=== PATIENT | male | born 1935 | race Caucasian/White ===

== ENCOUNTER 2018-10-20 09:23 | Inpatient (IN) ==
[2018-10-20] MEDS ORDERED: ALBUTEROL/IPRATROPIUM 3 ML NEB RESP TX STA ×2 (10:05→12:34)
[2018-10-20 10:26] LABS: Basophils % 0.2 % (0.0-0.8); Hematocrit 36.6 VOL% (42.0-52.0); Hemoglobin 11.8 GM/DL (14.0-18.0); Immature Granulocytes % 0.7 %; Immature Granulocytes Absolute 0.09 #; Lymphocytes # 0.9 10*3/uL (1.4-4.0); Lymphocytes % 6.2 % (21.2-54.2); Mean Corpuscular HGB Conc 32.2 GM/DL (32-36); Mean Corpuscular Volume 92.7 FL (87-102); Mean Platelet Volume 11.4 FL (9.6-12.0); Monocytes % 4.9 % (1.7-12.7); Platelet Count 237 T/CUMM (130-400); Red Blood Count 3.95 MC/CUMM (3.8-5.5); Red Cell Distribution Width 13.4 % (9.3-17.3); White Blood Count 13.8 T/CUMM (4-12)
[2018-10-20] MEDS ORDERED: LEVOFLOXACIN INJ 750 MG in PREMIX 1 EACH IV STA (10:26)
[2018-10-20] MEDS ORDERED: methylPREDNISolone SOD SUC 125 MG/2 ML VIAL IV STA (10:26)
[2018-10-20] MEDS ORDERED: AZITHROMYCIN INJ 500 MG in SODIUM CHLORIDE 0.9% 250 ML IV STA (10:26)
[2018-10-20 10:48] LABS: Alanine Aminotransferase 25 U/L (16-61); Albumin 3.5 G/DL (3.4-5.0); Alkaline Phosphatase 99 U/L (45-117); Aspartate Amino Transferase 19 U/L (0-37); Blood Urea Nitrogen 36 MG/DL (7-18); Calcium 8.7 MG/DL (8.5-10.1); Glucose 172 MG/DL (74-106)
[2018-10-20] MEDS ORDERED: SODIUM CHLORIDE 0.9% 1,000 ML IV STA (11:23)
[2018-10-20 11:42] LABS: ABG HCO3 20.7 MMOL/L (20-26); ABG PCO2 29.3 MM HG (35-48); ABG PH 7.466 (7.35-7.45); ABG PO2 61.1 MM HG (80-95); ABG TCO2 21.6 MMOL/L (23-27)
[2018-10-20] MEDS ORDERED: ACETAMINOPHEN 325 MG TABLET PO PRN (12:42)
[2018-10-20] MEDS ORDERED: ALBUTEROL 2.5 MG/3 ML NEB RESP TX PRN (12:42)
[2018-10-20] MEDS ORDERED: guaiFENesin/DM ER 600-30 MG TABLET PO PRN (12:42)
[2018-10-20] MEDS ORDERED: ONDANSETRON 4 MG/2 ML VIAL IV PRN (12:42)
[2018-10-20] MEDS: ALBUTEROL/IPRATROPIUM 3 ML NEB RESP TX SCH ×2 (12:45→18:57)
[2018-10-20] MEDS ORDERED: PIPERACILLIN/TAZOBACTAM 2.25 MG in SODIUM CHLORIDE 0.9% 100 ML IV SCH (13:00)
[2018-10-20] MEDS ORDERED: PIPERACILLIN/TAZOBACTAM 3.375 MG in SODIUM CHLORIDE 0.9% 100 ML IV SCH (14:00)
[2018-10-20] MEDS ORDERED: FUROSEMIDE 100 MG/10 ML VIAL IV ONE ×2 (14:46→17:00)
[2018-10-20 15:29] LABS: ABG Base Excess -7.1 MMOL/L (-2.5-2.5); ABG HCO3 18.7 MMOL/L (20-26); ABG Oxygen Saturation 98.2 % (95-100); ABG PCO2 41.7 MM HG (35-48); ABG PH 7.277 (7.35-7.45); ABG TCO2 17.5 MMOL/L (23-27); Allen Test Positive; Pt O2 Delivery Device Ventilator
[2018-10-20] MEDS ORDERED: ETOMIDATE 20 MG/10 ML VIAL IV ONE (15:34)
[2018-10-20] MEDS ORDERED: ROCURONIUM 100 MG/10 ML VIAL IV ONE (15:35)
[2018-10-20] MEDS ORDERED: VANCOMYCIN INJ 1,000 MG in SODIUM CHLORIDE 0.9% 250 ML IV ONE (15:39)
[2018-10-20] MEDS: ENOXAPARIN 40 MG/0.4 ML SYRINGE SUBCUT SCH (16:31)
[2018-10-20] MEDS: PANTOPRAZOLE 40 MG VIAL IV SCH (16:31)
[2018-10-20] MEDS: PIPERACILLIN/TAZOBACTAM 3,375 MG in SODIUM CHLORIDE 0.9% 100 ML IV SCH (16:43)
[2018-10-20] MEDS: methylPREDNISolone SOD SUC 125 MG/2 ML VIAL IV SCH (18:11)
[2018-10-20] MEDS: PROPOFOL 1,000 MG/100 ML BOTTLE IV PRN (18:59)
[2018-10-20] MEDS: LABETALOL 200 MG TABLET PO SCH (20:29)
[2018-10-21] MEDS: ALBUTEROL/IPRATROPIUM 3 ML NEB RESP TX SCH ×4 (00:21→19:31)
[2018-10-21] MEDS: PROPOFOL 1,000 MG/100 ML BOTTLE IV PRN ×5 (00:55→23:24)
[2018-10-21] MEDS: PIPERACILLIN/TAZOBACTAM 3,375 MG in SODIUM CHLORIDE 0.9% 100 ML IV SCH ×3 (01:14→16:48)
[2018-10-21 01:47] LABS: Basophils % 0.1 % (0.0-0.8); Hematocrit 35.7 VOL% (42.0-52.0); Hemoglobin 11.5 GM/DL (14.0-18.0); Immature Granulocytes % 0.6 %; Immature Granulocytes Absolute 0.06 #; Lymphocytes # 0.6 10*3/uL (1.4-4.0); Lymphocytes % 5.8 % (21.2-54.2); Mean Corpuscular HGB Conc 32.2 GM/DL (32-36); Mean Corpuscular Volume 92.5 FL (87-102); Mean Platelet Volume 11.3 FL (9.6-12.0); Monocytes % 2.8 % (1.7-12.7); Neutrophils % 90.7 % (38.7-73.9); Platelet Count 231 T/CUMM (130-400); Red Blood Count 3.86 MC/CUMM (3.8-5.5); Red Cell Distribution Width 13.3 % (9.3-17.3); White Blood Count 9.9 T/CUMM (4-12)
[2018-10-21 01:58] LABS: Calcium 7.9 MG/DL (8.5-10.1); Osmolality,Calculated 293.5 MOS/KG (273-304)
[2018-10-21] MEDS: methylPREDNISolone SOD SUC 125 MG/2 ML VIAL IV SCH ×3 (02:19→18:13)
[2018-10-21 04:27] LABS: ABG Base Excess -0.3 MMOL/L (-2.5-2.5); ABG HCO3 22.7 MMOL/L (20-26); ABG Oxygen Saturation 95.8 % (95-100); ABG PCO2 32.2 MM HG (35-48); ABG PH 7.466 (7.35-7.45); ABG PO2 80.1 MM HG (80-95); ABG TCO2 23.7 MMOL/L (23-27); Allen Test Positive; Pt O2 Delivery Device Ventilator
[2018-10-21 04:43] LABS: Lymphocytes 6 % (20-55); Segmented Neutrophils 91 % (50-85); Total Cells Counted 100
[2018-10-21 04:44] LABS: Anisocytosis Slight; Platelet Estimate Adequate
[2018-10-21] MEDS ORDERED: ASPIRIN EC 81 MG TABLET PO SCH (09:00)
[2018-10-21] MEDS: amLODIPine 10 MG TABLET PO SCH (09:07)
[2018-10-21] MEDS: SIMVASTATIN 20 MG TABLET PO SCH (09:07)
[2018-10-21] MEDS: LABETALOL 200 MG TABLET PO SCH ×2 (09:07→20:15)
[2018-10-21] MEDS: ASPIRIN CHEW 81 MG TABLET PO SCH (09:18)
[2018-10-21] MEDS ORDERED: FUROSEMIDE 40 MG/4 ML VIAL IV ONE (10:53)
[2018-10-21] MEDS: POTASSIUM CHLORIDE 20 MEQ/15 ML UDCUP PO SCH ×2 (11:06→20:15)
[2018-10-21] MEDS: PANTOPRAZOLE 40 MG VIAL IV SCH (12:50)
[2018-10-21] MEDS: ENOXAPARIN 40 MG/0.4 ML SYRINGE SUBCUT SCH (13:00)
[2018-10-21] MEDS ORDERED: GLUCAGON 1 MG VIAL IM PRN (16:11)
[2018-10-21] MEDS ORDERED: DEXTROSE 50% 25 GM/50 ML SYRINGE IV PRN (16:11)
[2018-10-21] MEDS: FUROSEMIDE 40 MG/4 ML VIAL IV SCH (16:48)
[2018-10-21] MEDS: INSULIN REGULAR 100 UNIT/ML SUBCUT SCH ×2 (18:12→23:30)
[2018-10-22] MEDS: PIPERACILLIN/TAZOBACTAM 3,375 MG in SODIUM CHLORIDE 0.9% 100 ML IV SCH ×3 (01:16→17:25)
[2018-10-22] MEDS: ALBUTEROL/IPRATROPIUM 3 ML NEB RESP TX SCH ×4 (01:41→20:34)
[2018-10-22] MEDS: methylPREDNISolone SOD SUC 125 MG/2 ML VIAL IV SCH ×4 (03:27→23:25)
[2018-10-22 04:30] LABS: ABG Base Excess 0.9 MMOL/L (-2.5-2.5); ABG HCO3 22.4 MMOL/L (20-26); ABG Oxygen Saturation 98.6 % (95-100); ABG PCO2 27.1 MM HG (35-48); ABG PH 7.536 (7.35-7.45); ABG PO2 127.6 MM HG (80-95); ABG TCO2 23.3 MMOL/L (23-27); Allen Test Positive; Pt O2 Delivery Device Ventilator
[2018-10-22 05:09] LABS: Calcium 8.1 MG/DL (8.5-10.1); Osmolality,Calculated 301.4 MOS/KG (273-304)
[2018-10-22] MEDS: INSULIN REGULAR 100 UNIT/ML SUBCUT SCH ×4 (05:39→23:25)
[2018-10-22] MEDS: PROPOFOL 1,000 MG/100 ML BOTTLE IV PRN ×4 (05:40→23:50)
[2018-10-22 06:12] LABS: Basophils % 0.1 % (0.0-0.8); Hematocrit 34.8 VOL% (42.0-52.0); Hemoglobin 11.6 GM/DL (14.0-18.0); Immature Granulocytes % 0.7 %; Immature Granulocytes Absolute 0.07 #; Lymphocytes # 0.5 10*3/uL (1.4-4.0); Lymphocytes % 5.2 % (21.2-54.2); Mean Corpuscular HGB Conc 33.3 GM/DL (32-36); Mean Corpuscular Volume 90.4 FL (87-102); Mean Platelet Volume 11.7 FL (9.6-12.0); Platelet Count 233 T/CUMM (130-400); Red Blood Count 3.85 MC/CUMM (3.8-5.5); Red Cell Distribution Width 13.4 % (9.3-17.3); White Blood Count 9.7 T/CUMM (4-12)
[2018-10-22 07:56] LABS: Anisocytosis Slight; Band Neutrophils 7 % (0-10); Lymphocytes 1 % (20-55); Platelet Estimate Normal; Segmented Neutrophils 91 % (50-85); Total Cells Counted 100
[2018-10-22] MEDS: FUROSEMIDE 40 MG/4 ML VIAL IV SCH ×2 (08:57→09:13)
[2018-10-22] MEDS: ENOXAPARIN 30 MG/0.3 ML SYRINGE SUBCUT SCH (09:12)
[2018-10-22] MEDS: amLODIPine 10 MG TABLET PO SCH (09:15)
[2018-10-22] MEDS: ASPIRIN CHEW 81 MG TABLET PO SCH (09:15)
[2018-10-22] MEDS: SIMVASTATIN 20 MG TABLET PO SCH (09:15)
[2018-10-22] MEDS: POTASSIUM CHLORIDE 20 MEQ/15 ML UDCUP PO SCH ×2 (09:25→20:15)
[2018-10-22] MEDS: LABETALOL 200 MG TABLET PO SCH (09:25)
[2018-10-22] MEDS ORDERED: DOXAZOSIN 2 MG TABLET PER TUBE SCH (10:30)
[2018-10-22] MEDS: DOXAZOSIN 1 MG TABLET PER TUBE SCH (11:31)
[2018-10-22] MEDS: LEVOFLOXACIN INJ 750 MG in PREMIX 1 EACH IV SCH (11:35)
[2018-10-22] MEDS: PANTOPRAZOLE 40 MG VIAL IV SCH (12:40)
[2018-10-23] MEDS: ALBUTEROL/IPRATROPIUM 3 ML NEB RESP TX SCH ×4 (00:54→20:53)
[2018-10-23] MEDS: PROPOFOL 1,000 MG/100 ML BOTTLE IV PRN ×3 (04:06→14:31)
[2018-10-23] MEDS: PIPERACILLIN/TAZOBACTAM 3,375 MG in SODIUM CHLORIDE 0.9% 100 ML IV SCH ×3 (04:19→16:53)
[2018-10-23 04:48] LABS: Basophils % 0.1 % (0.0-0.8); Hematocrit 36.1 VOL% (42.0-52.0); Hemoglobin 11.9 GM/DL (14.0-18.0); Immature Granulocytes % 0.8 %; Immature Granulocytes Absolute 0.06 #; Lymphocytes # 0.4 10*3/uL (1.4-4.0); Lymphocytes % 5.8 % (21.2-54.2); Mean Corpuscular Volume 91.6 FL (87-102); Mean Platelet Volume 11.9 FL (9.6-12.0); Monocytes % 3.6 % (1.7-12.7); Neutrophils % 89.7 % (38.7-73.9); Platelet Count 240 T/CUMM (130-400); Red Blood Count 3.94 MC/CUMM (3.8-5.5); Red Cell Distribution Width 13.4 % (9.3-17.3); White Blood Count 7.6 T/CUMM (4-12)
[2018-10-23 05:17] LABS: Calcium 8.3 MG/DL (8.5-10.1); Osmolality,Calculated 318.6 MOS/KG (273-304)
[2018-10-23 06:24] LABS: ABG Base Excess 2.5 MMOL/L (-2.5-2.5); ABG HCO3 26.6 MMOL/L (20-26); ABG Oxygen Saturation 99.1 % (95-100); ABG PCO2 40.5 MM HG (35-48); ABG PH 7.431 (7.35-7.45); ABG TCO2 23.9 MMOL/L (23-27)
[2018-10-23] MEDS: INSULIN REGULAR 100 UNIT/ML SUBCUT SCH ×3 (06:46→18:55)
[2018-10-23] MEDS: SIMVASTATIN 20 MG TABLET PO SCH (08:54)
[2018-10-23] MEDS: DOXAZOSIN 1 MG TABLET PER TUBE SCH (08:54)
[2018-10-23] MEDS: ASPIRIN CHEW 81 MG TABLET PO SCH (08:54)
[2018-10-23] MEDS: amLODIPine 10 MG TABLET PO SCH (08:54)
[2018-10-23] MEDS: POTASSIUM CHLORIDE 20 MEQ/15 ML UDCUP PO SCH ×2 (08:55→20:20)
[2018-10-23] MEDS: methylPREDNISolone SOD SUC 125 MG/2 ML VIAL IV SCH ×2 (08:56→16:47)
[2018-10-23] MEDS: ENOXAPARIN 30 MG/0.3 ML SYRINGE SUBCUT SCH (08:59)
[2018-10-23] MEDS: PANTOPRAZOLE 40 MG VIAL IV SCH (13:00)
[2018-10-24] MEDS: PROPOFOL 1,000 MG/100 ML BOTTLE IV PRN ×3 (00:15→08:48)
[2018-10-24] MEDS: ALBUTEROL/IPRATROPIUM 3 ML NEB RESP TX SCH ×4 (00:47→19:53)
[2018-10-24] MEDS: methylPREDNISolone SOD SUC 125 MG/2 ML VIAL IV SCH ×3 (01:01→16:59)
[2018-10-24] MEDS: INSULIN REGULAR 100 UNIT/ML SUBCUT SCH ×4 (01:02→18:32)
[2018-10-24] MEDS: PIPERACILLIN/TAZOBACTAM 3,375 MG in SODIUM CHLORIDE 0.9% 100 ML IV SCH ×3 (01:05→16:59)
[2018-10-24 04:03] LABS: ABG HCO3 28.5 MMOL/L (20-26); ABG Oxygen Saturation 94.9 % (95-100); ABG PCO2 42.7 MM HG (35-48); ABG PH 7.443 (7.35-7.45); ABG PO2 77.4 MM HG (80-95); ABG TCO2 29.9 MMOL/L (23-27); Allen Test Positive; Pt O2 Delivery Device Ventilator
[2018-10-24 04:27] LABS: Basophils % 0.1 % (0.0-0.8); Hematocrit 39.2 VOL% (42.0-52.0); Hemoglobin 12.3 GM/DL (14.0-18.0); Immature Granulocytes % 0.6 %; Immature Granulocytes Absolute 0.05 #; Lymphocytes # 0.4 10*3/uL (1.4-4.0); Lymphocytes % 3.9 % (21.2-54.2); Mean Corpuscular HGB Conc 31.4 GM/DL (32-36); Mean Platelet Volume 11.4 FL (9.6-12.0); Monocytes % 4.6 % (1.7-12.7); Neutrophils % 90.8 % (38.7-73.9); Platelet Count 216 T/CUMM (130-400); Red Blood Count 4.17 MC/CUMM (3.8-5.5); Red Cell Distribution Width 13.4 % (9.3-17.3); White Blood Count 8.9 T/CUMM (4-12)
[2018-10-24 04:51] LABS: Calcium 8.5 MG/DL (8.5-10.1); Osmolality,Calculated 321.9 MOS/KG (273-304)
[2018-10-24 05:10] LABS: Anisocytosis 1+; Band Neutrophils 1 % (0-10); Lymphocytes 6 % (20-55); Platelet Estimate Normal; Segmented Neutrophils 89 % (50-85); Total Cells Counted 100
[2018-10-24] MEDS: POTASSIUM CHLORIDE 20 MEQ/15 ML UDCUP PO SCH (08:10)
[2018-10-24] MEDS: amLODIPine 10 MG TABLET PO SCH (08:10)
[2018-10-24] MEDS: ENOXAPARIN 30 MG/0.3 ML SYRINGE SUBCUT SCH (08:10)
[2018-10-24] MEDS: ASPIRIN CHEW 81 MG TABLET PO SCH (08:10)
[2018-10-24] MEDS: DOXAZOSIN 1 MG TABLET PER TUBE SCH (08:10)
[2018-10-24] MEDS: SIMVASTATIN 20 MG TABLET PO SCH (08:11)
[2018-10-24] MEDS: FUROSEMIDE 40 MG/4 ML VIAL IV SCH ×2 (09:13)
[2018-10-24 09:23] LABS: ABG Base Excess 3.5 MMOL/L (-2.5-2.5); ABG HCO3 27.3 MMOL/L (20-26); ABG Oxygen Saturation 89.6 % (95-100); ABG PO2 55.4 MM HG (80-95); ABG TCO2 23.3 MMOL/L (23-27)
[2018-10-24] MEDS: LEVOFLOXACIN INJ 750 MG in PREMIX 1 EACH IV SCH (11:40)
[2018-10-24] MEDS: PANTOPRAZOLE 40 MG VIAL IV SCH (14:07)
[2018-10-24] MEDS ORDERED: AMIODARONE INJ 150 MG in DEXTROSE 5% 100 ML IV ONE (20:36)
[2018-10-24] MEDS ORDERED: AMIODARONE 150 MG/3 ML VIAL ONE (20:37)
[2018-10-25] MEDS: INSULIN REGULAR 100 UNIT/ML SUBCUT SCH ×4 (00:04→18:17)
[2018-10-25] MEDS: methylPREDNISolone SOD SUC 125 MG/2 ML VIAL IV SCH ×3 (00:04→22:10)
[2018-10-25] MEDS: PIPERACILLIN/TAZOBACTAM 3,375 MG in SODIUM CHLORIDE 0.9% 100 ML IV SCH ×3 (00:13→18:17)
[2018-10-25 04:51] LABS: Basophils % 0.1 % (0.0-0.8); Hematocrit 39.5 VOL% (42.0-52.0); Hemoglobin 12.7 GM/DL (14.0-18.0); Immature Granulocytes % 0.8 %; Immature Granulocytes Absolute 0.09 #; Lymphocytes # 0.7 10*3/uL (1.4-4.0); Mean Corpuscular HGB Conc 32.2 GM/DL (32-36); Mean Corpuscular Volume 92.3 FL (87-102); Mean Platelet Volume 11.5 FL (9.6-12.0); Monocytes % 6.5 % (1.7-12.7); Neutrophils % 86.6 % (38.7-73.9); Platelet Count 232 T/CUMM (130-400); Red Blood Count 4.28 MC/CUMM (3.8-5.5); Red Cell Distribution Width 13.3 % (9.3-17.3); White Blood Count 10.8 T/CUMM (4-12)
[2018-10-25 05:06] LABS: Calcium 8.3 MG/DL (8.5-10.1); Osmolality,Calculated 304.7 MOS/KG (273-304)
[2018-10-25 06:14] LABS: ABG Base Excess 7.2 MMOL/L (-2.5-2.5); ABG HCO3 30.8 MMOL/L (20-26); ABG Oxygen Saturation 90.7 % (95-100); ABG PCO2 39.7 MM HG (35-48); ABG PH 7.499 (7.35-7.45); ABG PO2 63.7 MM HG (80-95); ABG TCO2 27.2 MMOL/L (23-27); Allen Test Positive; Pt O2 Delivery Device Venturi Mask
[2018-10-25] MEDS: ALBUTEROL/IPRATROPIUM 3 ML NEB RESP TX SCH ×4 (06:59→19:56)
[2018-10-25] MEDS: ENOXAPARIN 30 MG/0.3 ML SYRINGE SUBCUT SCH (08:14)
[2018-10-25] MEDS: DOXAZOSIN 1 MG TABLET PER TUBE SCH (08:15)
[2018-10-25] MEDS: amLODIPine 10 MG TABLET PO SCH (08:15)
[2018-10-25] MEDS: FUROSEMIDE 40 MG/4 ML VIAL IV SCH (08:15)
[2018-10-25] MEDS: SIMVASTATIN 20 MG TABLET PO SCH (08:15)
[2018-10-25] MEDS: ASPIRIN CHEW 81 MG TABLET PO SCH (08:15)
[2018-10-25] MEDS: POTASSIUM CHLORIDE RIDER 10 MEQ in PREMIX 1 EACH IV PRN ×3 (08:16→10:17)
[2018-10-25] MEDS: PANTOPRAZOLE 40 MG VIAL IV SCH (13:51)
[2018-10-25] MEDS ORDERED: METOPROLOL TARTRATE 5 MG/5 ML VIAL IV ONE (18:43)
[2018-10-25] MEDS ORDERED: AMIODARONE INJ 150 MG in DEXTROSE 5% 100 ML IV ONE (18:48)
[2018-10-25] MEDS: CEFUROXIME 250 MG TABLET PO SCH (22:09)
[2018-10-25] MEDS: AMIODARONE 200 MG TABLET PO SCH (22:10)
[2018-10-26] MEDS: INSULIN REGULAR 100 UNIT/ML SUBCUT SCH ×4 (00:13→17:30)
[2018-10-26] MEDS: ALBUTEROL/IPRATROPIUM 3 ML NEB RESP TX SCH ×5 (01:07→19:52)
[2018-10-26 05:19] LABS: Basophils % 0.2 % (0.0-0.8); Hematocrit 44.3 VOL% (42.0-52.0); Hemoglobin 14.6 GM/DL (14.0-18.0); Immature Granulocytes Absolute 0.12 #; Lymphocytes # 0.4 10*3/uL (1.4-4.0); Lymphocytes % 3.5 % (21.2-54.2); Mean Corpuscular Volume 90.2 FL (87-102); Mean Platelet Volume 11.3 FL (9.6-12.0); Monocytes % 1.7 % (1.7-12.7); Neutrophils % 93.6 % (38.7-73.9); Platelet Count 240 T/CUMM (130-400); Red Blood Count 4.91 MC/CUMM (3.8-5.5); Red Cell Distribution Width 12.9 % (9.3-17.3)
[2018-10-26 05:43] LABS: Calcium 8.2 MG/DL (8.5-10.1); Osmolality,Calculated 291.8 MOS/KG (273-304)
[2018-10-26 05:45] LABS: Lymphocytes 5 % (20-55); Platelet Estimate Normal; Segmented Neutrophils 95 % (50-85); Total Cells Counted 100
[2018-10-26 05:46] LABS: Polychromasia Slight
[2018-10-26] MEDS ORDERED: AMIODARONE INJ 150 MG in DEXTROSE 5% 100 ML IV ONE (08:04)
[2018-10-26] MEDS: methylPREDNISolone SOD SUC 125 MG/2 ML VIAL IV SCH (08:45)
[2018-10-26] MEDS ORDERED: methylPREDNISolone SOD SUC 40 MG/1 ML VIAL IV SCH (09:00)
[2018-10-26] MEDS: POTASSIUM CHLORIDE RIDER 10 MEQ in PREMIX 1 EACH IV PRN ×3 (09:10→11:20)
[2018-10-26] MEDS: CEFUROXIME 250 MG TABLET PO SCH ×2 (09:11→21:54)
[2018-10-26] MEDS: CARVEDILOL 12.5 MG TABLET PO SCH ×2 (09:11→21:55)
[2018-10-26] MEDS: amLODIPine 10 MG TABLET PO SCH (09:11)
[2018-10-26] MEDS: DOXAZOSIN 1 MG TABLET PER TUBE SCH (09:11)
[2018-10-26] MEDS: FUROSEMIDE 40 MG/4 ML VIAL IV SCH (09:11)
[2018-10-26] MEDS: ASPIRIN CHEW 81 MG TABLET PO SCH (09:11)
[2018-10-26] MEDS: LEVOFLOXACIN 250 MG TABLET PO SCH (09:11)
[2018-10-26] MEDS: ENOXAPARIN 30 MG/0.3 ML SYRINGE SUBCUT SCH (09:11)
[2018-10-26] MEDS: AMIODARONE 200 MG TABLET PO SCH ×2 (09:11→21:54)
[2018-10-26] MEDS: SIMVASTATIN 20 MG TABLET PO SCH (09:12)
[2018-10-27] MEDS: ALBUTEROL/IPRATROPIUM 3 ML NEB RESP TX SCH ×4 (00:05→20:18)
[2018-10-27] MEDS: INSULIN REGULAR 100 UNIT/ML SUBCUT SCH ×4 (00:37→18:48)
[2018-10-27 06:27] LABS: Basophils % 0.1 % (0.0-0.8); Eosinophils # 0.1 10*3/uL (0.0-0.87); Eosinophils % 0.4 % (0.00-10.9); Hematocrit 42.8 VOL% (42.0-52.0); Hemoglobin 14.5 GM/DL (14.0-18.0); Immature Granulocytes % 0.9 %; Immature Granulocytes Absolute 0.15 #; Lymphocytes # 1.4 10*3/uL (1.4-4.0); Lymphocytes % 8.6 % (21.2-54.2); Mean Corpuscular HGB Conc 33.9 GM/DL (32-36); Mean Corpuscular Volume 89.2 FL (87-102); Mean Platelet Volume 11.4 FL (9.6-12.0); Monocytes % 8.2 % (1.7-12.7); Neutrophils % 81.8 % (38.7-73.9); Platelet Count 271 T/CUMM (130-400); Red Cell Distribution Width 12.8 % (9.3-17.3); White Blood Count 16.7 T/CUMM (4-12)
[2018-10-27 06:41] LABS: Calcium 7.7 MG/DL (8.5-10.1); Osmolality,Calculated 288.8 MOS/KG (273-304)
[2018-10-27] MEDS: methylPREDNISolone SOD SUC 40 MG/1 ML VIAL IV SCH (08:57)
[2018-10-27] MEDS: DOXAZOSIN 1 MG TABLET PER TUBE SCH (08:58)
[2018-10-27] MEDS: AMIODARONE 200 MG TABLET PO SCH ×2 (08:58→21:54)
[2018-10-27] MEDS: ASPIRIN CHEW 81 MG TABLET PO SCH (08:58)
[2018-10-27] MEDS: amLODIPine 10 MG TABLET PO SCH (08:58)
[2018-10-27] MEDS: CEFUROXIME 250 MG TABLET PO SCH ×2 (08:58→21:53)
[2018-10-27] MEDS: SIMVASTATIN 20 MG TABLET PO SCH (08:58)
[2018-10-27] MEDS: FUROSEMIDE 40 MG/4 ML VIAL IV SCH (08:59)
[2018-10-27] MEDS: CARVEDILOL 12.5 MG TABLET PO SCH ×2 (08:59→21:53)
[2018-10-27] MEDS: LEVOFLOXACIN 250 MG TABLET PO SCH (08:59)
[2018-10-27] MEDS: PANTOPRAZOLE 40 MG TABLET PO SCH (08:59)
[2018-10-27] MEDS: ENOXAPARIN 40 MG/0.4 ML SYRINGE SUBCUT SCH (08:59)
[2018-10-27] MEDS: POTASSIUM CHLORIDE 20 MEQ TABLET PO SCH (21:53)
[2018-10-28] MEDS: ALBUTEROL/IPRATROPIUM 3 ML NEB RESP TX SCH ×4 (00:13→20:22)
[2018-10-28] MEDS: INSULIN REGULAR 100 UNIT/ML SUBCUT SCH ×4 (00:59→18:38)
[2018-10-28] MEDS: DOXAZOSIN 1 MG TABLET PO SCH (09:20)
[2018-10-28] MEDS: ENOXAPARIN 40 MG/0.4 ML SYRINGE SUBCUT SCH (09:20)
[2018-10-28] MEDS: CARVEDILOL 12.5 MG TABLET PO SCH ×2 (09:20→21:50)
[2018-10-28] MEDS: SIMVASTATIN 20 MG TABLET PO SCH (09:21)
[2018-10-28] MEDS: amLODIPine 10 MG TABLET PO SCH (09:21)
[2018-10-28] MEDS: AMIODARONE 200 MG TABLET PO SCH ×2 (09:21→21:49)
[2018-10-28] MEDS: LEVOFLOXACIN 250 MG TABLET PO SCH (09:21)
[2018-10-28] MEDS: PANTOPRAZOLE 40 MG TABLET PO SCH (09:21)
[2018-10-28] MEDS: POTASSIUM CHLORIDE 20 MEQ TABLET PO SCH ×2 (09:21→21:50)
[2018-10-28] MEDS: CEFUROXIME 250 MG TABLET PO SCH ×2 (09:21→21:49)
[2018-10-28] MEDS: FUROSEMIDE 40 MG/4 ML VIAL IV SCH (09:21)
[2018-10-28] MEDS: methylPREDNISolone SOD SUC 40 MG/1 ML VIAL IV SCH (09:22)
[2018-10-28] MEDS: ASPIRIN CHEW 81 MG TABLET PO SCH (09:22)
[2018-10-29] MEDS: INSULIN REGULAR 100 UNIT/ML SUBCUT SCH ×3 (00:41→12:26)
[2018-10-29] MEDS: ALBUTEROL/IPRATROPIUM 3 ML NEB RESP TX SCH ×3 (01:02→13:46)
[2018-10-29 07:03] LABS: Basophils % 0.1 % (0.0-0.8); Eosinophils # 0.1 10*3/uL (0.0-0.87); Eosinophils % 0.4 % (0.00-10.9); Hemoglobin 13.8 GM/DL (14.0-18.0); Immature Granulocytes % 0.6 %; Immature Granulocytes Absolute 0.08 #; Lymphocytes % 7.5 % (21.2-54.2); Mean Corpuscular HGB Conc 32.9 GM/DL (32-36); Mean Corpuscular Volume 89.2 FL (87-102); Mean Platelet Volume 11.1 FL (9.6-12.0); Monocytes % 10.1 % (1.7-12.7); Neutrophils % 81.3 % (38.7-73.9); Platelet Count 261 T/CUMM (130-400); Red Blood Count 4.71 MC/CUMM (3.8-5.5); Red Cell Distribution Width 12.7 % (9.3-17.3); White Blood Count 12.8 T/CUMM (4-12)
[2018-10-29 07:20] LABS: Calcium 7.9 MG/DL (8.5-10.1); Osmolality,Calculated 289.8 MOS/KG (273-304)
[2018-10-29] MEDS: PANTOPRAZOLE 40 MG TABLET PO SCH (09:37)
[2018-10-29] MEDS: POTASSIUM CHLORIDE 20 MEQ TABLET PO SCH (09:38)
[2018-10-29] MEDS: LEVOFLOXACIN 250 MG TABLET PO SCH (09:38)
[2018-10-29] MEDS: AMIODARONE 200 MG TABLET PO SCH (09:38)
[2018-10-29] MEDS: amLODIPine 10 MG TABLET PO SCH (09:39)
[2018-10-29] MEDS: ASPIRIN CHEW 81 MG TABLET PO SCH (09:39)
[2018-10-29] MEDS: CARVEDILOL 12.5 MG TABLET PO SCH (09:39)
[2018-10-29] MEDS: SIMVASTATIN 20 MG TABLET PO SCH (09:39)
[2018-10-29] MEDS: DOXAZOSIN 1 MG TABLET PO SCH (09:40)
[2018-10-29] MEDS: ENOXAPARIN 40 MG/0.4 ML SYRINGE SUBCUT SCH (09:41)
[2018-10-29] MEDS: CEFUROXIME 250 MG TABLET PO SCH (09:42)
[2018-10-29] MEDS: FUROSEMIDE 40 MG/4 ML VIAL IV SCH (09:42)
[2018-10-29] MEDS: methylPREDNISolone SOD SUC 40 MG/1 ML VIAL IV SCH (09:48)
[2018-10-29 16:20] VITALS: BP 95/66
== END 2018-10-29 18:00 | disposition home or self-care (01) | DRG 208 ==
LOC: N.ED 09:23 → N.EDINP 12:42 → SUATTDRO 12:42 → N.ICU 14:17 → N.TELEN 10-26 13:07
PROVIDERS: ADMIT Internal Medicine Nephrology; ATTEND Hospitalist

== ENCOUNTER 2018-12-24 12:00 | Inpatient (IN) ==
[2018-12-24] MEDS ORDERED: ONDANSETRON 4 MG/2 ML VIAL IV PRN (15:44)
[2018-12-24] MEDS ORDERED: ACETAMINOPHEN 325 MG TABLET PO PRN (15:56)
[2018-12-24 16:11] LABS: Basophils # 0.1 10*3/uL (0.0-0.2); Eosinophils # 0.4 10*3/uL (0.0-0.87); Eosinophils % 8.2 % (0.00-10.9); Hematocrit 33.6 VOL% (42.0-52.0); Hemoglobin 10.8 GM/DL (14.0-18.0); Immature Granulocytes % 0.4 %; Immature Granulocytes Absolute 0.02 #; Lymphocytes # 1.5 10*3/uL (1.4-4.0); Lymphocytes % 30.9 % (21.2-54.2); Mean Corpuscular HGB Conc 32.1 GM/DL (32-36); Mean Corpuscular Volume 94.6 FL (87-102); Mean Platelet Volume 10.7 FL (9.6-12.0); Neutrophils % 49.5 % (38.7-73.9); Platelet Count 183 T/CUMM (130-400); Red Blood Count 3.55 MC/CUMM (3.8-5.5); Red Cell Distribution Width 14.9 % (9.3-17.3); White Blood Count 4.9 T/CUMM (4-12)
[2018-12-24 16:28] LABS: Calcium 8.4 MG/DL (8.5-10.1); Osmolality,Calculated 282.4 MOS/KG (273-304)
[2018-12-24 16:55] LABS: Albumin 3.7 G/DL (3.4-5.0); Bilirubin,Direct 0.17 MG/DL (0.0-0.20); Bilirubin,Indirect 0.5 MG/DL (0.0-1.0); Bilirubin,Total 0.7 MG/DL (0.2-1.0); Total Protein 6.7 G/DL (6.4-8.3)
[2018-12-24 17:01] LABS: Troponin I < 0.015 NG/ML (0.00-0.045)
[2018-12-24] MEDS: FUROSEMIDE 40 MG/4 ML VIAL IV SCH ×2 (19:11→21:23)
[2018-12-24 19:53] LABS: Apearance,Urine CLEAR (Clear); Bacteria,Urine Occasional /HPF (Few); Bilirubin,Urine Negative (Negative); Blood, Urine Small mg/dL (Negative); Glucose,Urine (UA) Negative (Negative); Hyaline Casts,Urine 3 /LPF (0-3); Ketones,Urine Negative (Negative); Mucus,Urine Occasional /LPF (Occasional); Nitrite,Urine Negative (Negative); Protein,Urine Negative; RBC,Urine 1 /HPF (0-4); Squamous Epithelial Cell,Urine Occasional /HPF (0-10); Urine Color Straw (Yellow); Urine Specific Gravity 1.005 (1.001-1.035); Urine Urobilinogen < 2.0 EU/DL (0.2-1.0)
[2018-12-24 19:58] LABS: Troponin I < 0.015 NG/ML (0.00-0.045)
[2018-12-24] MEDS: hydrALAZINE 25 MG TABLET PO SCH (21:22)
[2018-12-24] MEDS: LABETALOL 200 MG TABLET PO SCH (21:22)
[2018-12-24] MEDS: ENOXAPARIN 30 MG/0.3 ML SYRINGE SUBCUT SCH (21:29)
[2018-12-24 22:45] LABS: Troponin I < 0.015 NG/ML (0.00-0.045)
[2018-12-25] MEDS: FUROSEMIDE 40 MG/4 ML VIAL IV SCH ×4 (04:10→18:13)
[2018-12-25 06:21] LABS: Basophils % 0.8 % (0.0-0.8); Eosinophils # 0.5 10*3/uL (0.0-0.87); Eosinophils % 9.1 % (0.00-10.9); Immature Granulocytes % 0.2 %; Immature Granulocytes Absolute 0.01 #; Lymphocytes # 1.8 10*3/uL (1.4-4.0); Lymphocytes % 34.7 % (21.2-54.2); Mean Corpuscular HGB Conc 32.4 GM/DL (32-36); Mean Corpuscular Volume 93.7 FL (87-102); Mean Platelet Volume 11.5 FL (9.6-12.0); Monocytes % 9.1 % (1.7-12.7); Neutrophils % 46.1 % (38.7-73.9); Platelet Count 199 T/CUMM (130-400); Red Blood Count 3.63 MC/CUMM (3.8-5.5); Red Cell Distribution Width 14.9 % (9.3-17.3); White Blood Count 5.2 T/CUMM (4-12)
[2018-12-25 06:39] LABS: Calcium 8.5 MG/DL (8.5-10.1); Osmolality,Calculated 286.1 MOS/KG (273-304)
[2018-12-25 06:48] LABS: Calcium 8.4 MG/DL (8.5-10.1); Osmolality,Calculated 283.3 MOS/KG (273-304); Risk Ratio 3.21; Thyroid Stimulating Hormone 8.57 uIU/ml (0.358-3.74)
[2018-12-25] MEDS: amLODIPine 5 MG TABLET PO SCH (08:22)
[2018-12-25] MEDS: PANTOPRAZOLE 40 MG TABLET PO SCH (08:22)
[2018-12-25] MEDS: ASPIRIN EC 81 MG TABLET PO SCH (08:22)
[2018-12-25] MEDS: LABETALOL 200 MG TABLET PO SCH ×2 (08:22→20:23)
[2018-12-25] MEDS: hydrALAZINE 25 MG TABLET PO SCH ×3 (08:22→20:23)
[2018-12-25] MEDS: AMIODARONE 200 MG TABLET PO SCH (08:22)
[2018-12-25] MEDS ORDERED: amLODIPine 10 MG TABLET PO SCH (09:00)
[2018-12-25] MEDS ORDERED: POTASSIUM CHLORIDE 20 MEQ TABLET PO ONE (10:30)
[2018-12-25] MEDS: ALBUTEROL/IPRATROPIUM 3 ML NEB RESP TX SCH (18:51)
[2018-12-25] MEDS: DOXYCYCLINE HYCLATE 100 MG CAPSULE PO SCH (20:23)
[2018-12-25] MEDS: ENOXAPARIN 30 MG/0.3 ML SYRINGE SUBCUT SCH (20:25)
[2018-12-25] MEDS ORDERED: SIMVASTATIN 20 MG TABLET PO SCH (21:00)
[2018-12-26] MEDS: ALBUTEROL/IPRATROPIUM 3 ML NEB RESP TX SCH ×3 (00:20→13:01)
[2018-12-26 05:33] LABS: Basophils % 0.8 % (0.0-0.8); Eosinophils # 0.4 10*3/uL (0.0-0.87); Eosinophils % 8.4 % (0.00-10.9); Hematocrit 34.5 VOL% (42.0-52.0); Hemoglobin 11.2 GM/DL (14.0-18.0); Immature Granulocytes % 0.2 %; Immature Granulocytes Absolute 0.01 #; Lymphocytes # 1.8 10*3/uL (1.4-4.0); Lymphocytes % 34.1 % (21.2-54.2); Mean Corpuscular HGB Conc 32.5 GM/DL (32-36); Mean Platelet Volume 11.3 FL (9.6-12.0); Monocytes % 9.4 % (1.7-12.7); Neutrophils % 47.1 % (38.7-73.9); Platelet Count 186 T/CUMM (130-400); Red Blood Count 3.71 MC/CUMM (3.8-5.5); Red Cell Distribution Width 14.8 % (9.3-17.3); White Blood Count 5.2 T/CUMM (4-12)
[2018-12-26 05:49] LABS: Calcium 8.5 MG/DL (8.5-10.1); Osmolality,Calculated 286.1 MOS/KG (273-304)
[2018-12-26] MEDS ORDERED: POTASSIUM CHLORIDE 20 MEQ TABLET PO SCH (09:00)
[2018-12-26] MEDS: hydrALAZINE 25 MG TABLET PO SCH (09:47)
[2018-12-26] MEDS: amLODIPine 5 MG TABLET PO SCH (09:48)
[2018-12-26] MEDS: ASPIRIN EC 81 MG TABLET PO SCH (09:48)
[2018-12-26] MEDS: LABETALOL 200 MG TABLET PO SCH (09:48)
[2018-12-26] MEDS: AMIODARONE 200 MG TABLET PO SCH (09:49)
[2018-12-26] MEDS: FUROSEMIDE 40 MG/4 ML VIAL IV SCH (09:50)
[2018-12-26] MEDS: DOXYCYCLINE HYCLATE 100 MG CAPSULE PO SCH (09:50)
[2018-12-26] MEDS: PANTOPRAZOLE 40 MG TABLET PO SCH (09:50)
[2018-12-26] MEDS ORDERED: POTASSIUM CHLORIDE 20 MEQ TABLET PO ONE (12:00)
[2018-12-26 12:17] VITALS: BP 123/60
== END 2018-12-26 15:19 | disposition home or self-care (01) | DRG 291 ==
LOC: N.2E → SUATTDRO 14:26 → OBSVTOIN 14:26
PROVIDERS: ADMIT Internal Medicine; ATTEND Hospitalist

== ENCOUNTER 2018-12-31 09:14 | Inpatient (IN) ==
[2018-12-31] MEDS ORDERED: ONDANSETRON 4 MG/2 ML VIAL IV STA (09:36)
[2018-12-31] MEDS ORDERED: MORPHINE 4 MG/1 ML VIAL IV STA (09:36)
[2018-12-31] MEDS ORDERED: FUROSEMIDE 100 MG/10 ML VIAL IV STA (09:36)
[2018-12-31] MEDS ORDERED: methylPREDNISolone SOD SUC 125 MG/2 ML VIAL IV STA (09:36)
[2018-12-31] MEDS ORDERED: ALBUTEROL 2.5 MG/3 ML NEB RESP TX SCH (10:00)
[2018-12-31 10:16] LABS: Basophils # 0.1 10*3/uL (0.0-0.2); Basophils % 0.7 % (0.0-0.8); Eosinophils # 0.2 10*3/uL (0.0-0.87); Eosinophils % 2.2 % (0.00-10.9); Hematocrit 37.4 VOL% (42.0-52.0); Hemoglobin 11.7 GM/DL (14.0-18.0); Immature Granulocytes % 0.3 %; Immature Granulocytes Absolute 0.02 #; Lymphocytes # 1.4 10*3/uL (1.4-4.0); Lymphocytes % 18.6 % (21.2-54.2); Mean Corpuscular HGB Conc 31.3 GM/DL (32-36); Mean Platelet Volume 10.8 FL (9.6-12.0); Monocytes % 6.6 % (1.7-12.7); Neutrophils % 71.6 % (38.7-73.9); Platelet Count 208 T/CUMM (130-400); Red Blood Count 3.98 MC/CUMM (3.8-5.5); White Blood Count 7.6 T/CUMM (4-12)
[2018-12-31 10:27] LABS: INR 1.1
[2018-12-31 10:52] LABS: Albumin 4.4 G/DL (3.4-5.0); Calcium 9.1 MG/DL (8.5-10.1); Osmolality,Calculated 278.8 MOS/KG (273-304); Total Protein 7.4 G/DL (6.4-8.3)
[2018-12-31] MEDS ORDERED: cefTRIAXone 1,000 MG in SYRINGE 1 EACH IV SCH (12:00)
[2018-12-31] MEDS ORDERED: ONDANSETRON 4 MG/2 ML VIAL IV PRN (12:23)
[2018-12-31] MEDS ORDERED: DOCUSATE SODIUM 100 MG CAPSULE PO PRN (12:23)
[2018-12-31] MEDS ORDERED: ACETAMINOPHEN 325 MG TABLET PO PRN (12:23)
[2018-12-31] MEDS ORDERED: ENOXAPARIN 40 MG/0.4 ML SYRINGE ONE (12:45)
[2018-12-31 12:51] LABS: Risk Ratio 3.02; VLDL CHOLESTEROL 23.2 MG/DL
[2018-12-31] MEDS ORDERED: ENOXAPARIN 30 MG/0.3 ML SYRINGE ONE (12:52)
[2018-12-31] MEDS ORDERED: ALBUTEROL/IPRATROPIUM 3 ML NEB RESP TX PRN (13:25)
[2018-12-31] MEDS ORDERED: SODIUM CHLORIDE 0.9% 1,000 ML IV SCH (13:30)
[2018-12-31] MEDS ORDERED: cefTRIAXone 2,000 MG in SYRINGE 1 EACH IV SCH (17:00)
[2018-12-31] MEDS: ALBUTEROL/IPRATROPIUM 3 ML NEB RESP TX SCH (19:30)
[2018-12-31 20:30] LABS: Apearance,Urine CLEAR (Clear); Bacteria,Urine Occasional /HPF (Few); Bilirubin,Urine Negative (Negative); Blood, Urine Negative (Negative); Glucose,Urine (UA) Negative (Negative); Hyaline Casts,Urine 47 /LPF (0-3); Ketones,Urine Negative (Negative); Mucus,Urine Occasional /LPF (Occasional); Nitrite,Urine Negative (Negative); Protein,Urine Negative; RBC,Urine 1 /HPF (0-4); Squamous Epithelial Cell,Urine Occasional /HPF (0-10); Urine Color Yellow (Yellow); Urine Urobilinogen < 2.0 EU/DL (<2.0); WBC,Urine 1 /HPF (0-6)
[2018-12-31] MEDS: LABETALOL 200 MG TABLET PO SCH (21:01)
[2018-12-31] MEDS: POTASSIUM CHLORIDE 20 MEQ TABLET PO SCH (21:01)
[2018-12-31] MEDS: ENOXAPARIN 40 MG/0.4 ML SYRINGE SUBCUT SCH (21:02)
[2018-12-31] MEDS: hydrALAZINE 25 MG TABLET PO SCH (21:02)
[2018-12-31] MEDS: SIMVASTATIN 20 MG TABLET PO SCH (21:02)
[2018-12-31] MEDS: DOXYCYCLINE HYCLATE 100 MG CAPSULE PO SCH (21:02)
[2019-01-01] MEDS: ALBUTEROL/IPRATROPIUM 3 ML NEB RESP TX SCH ×4 (00:16→19:14)
[2019-01-01 05:02] LABS: Hematocrit 34.8 VOL% (42.0-52.0); Immature Granulocytes % 0.2 %; Immature Granulocytes Absolute 0.01 #; Lymphocytes # 0.9 10*3/uL (1.4-4.0); Mean Corpuscular HGB Conc 31.6 GM/DL (32-36); Mean Corpuscular Volume 95.1 FL (87-102); Mean Platelet Volume 11.7 FL (9.6-12.0); Neutrophils % 78.8 % (38.7-73.9); Platelet Count 194 T/CUMM (130-400); Red Blood Count 3.66 MC/CUMM (3.8-5.5); Red Cell Distribution Width 14.9 % (9.3-17.3); White Blood Count 4.5 T/CUMM (4-12)
[2019-01-01 05:35] LABS: Albumin 4.1 G/DL (3.4-5.0); Bilirubin,Total 0.8 MG/DL (0.2-1.0); Calcium 9.3 MG/DL (8.5-10.1); Osmolality,Calculated 276.2 MOS/KG (273-304); Total Protein 7.3 G/DL (6.4-8.3)
[2019-01-01] MEDS: PANTOPRAZOLE 40 MG TABLET PO SCH (08:53)
[2019-01-01] MEDS: AMIODARONE 200 MG TABLET PO SCH (08:53)
[2019-01-01] MEDS: ASPIRIN EC 81 MG TABLET PO SCH (08:54)
[2019-01-01] MEDS: FUROSEMIDE 40 MG/4 ML VIAL IV SCH ×2 (08:54→16:30)
[2019-01-01] MEDS: amLODIPine 10 MG TABLET PO SCH (08:54)
[2019-01-01] MEDS: LABETALOL 200 MG TABLET PO SCH ×2 (08:54→20:42)
[2019-01-01] MEDS: DOXYCYCLINE HYCLATE 100 MG CAPSULE PO SCH ×2 (08:54→20:42)
[2019-01-01] MEDS: POTASSIUM CHLORIDE 20 MEQ TABLET PO SCH ×2 (09:09→20:43)
[2019-01-01] MEDS: hydrALAZINE 25 MG TABLET PO SCH (09:09)
[2019-01-01] MEDS ORDERED: cefTRIAXone 2,000 MG in SODIUM CHLORIDE 0.9% 100 ML IV SCH (17:00)
[2019-01-01] MEDS: ENOXAPARIN 40 MG/0.4 ML SYRINGE SUBCUT SCH (20:42)
[2019-01-01] MEDS: SIMVASTATIN 20 MG TABLET PO SCH (20:42)
[2019-01-02] MEDS: ALBUTEROL/IPRATROPIUM 3 ML NEB RESP TX SCH ×4 (00:32→19:25)
[2019-01-02 05:13] LABS: Basophils % 0.1 % (0.0-0.8); Eosinophils % 0.1 % (0.00-10.9); Hematocrit 34.1 VOL% (42.0-52.0); Hemoglobin 10.8 GM/DL (14.0-18.0); Immature Granulocytes % 0.6 %; Immature Granulocytes Absolute 0.05 #; Lymphocytes # 1.8 10*3/uL (1.4-4.0); Lymphocytes % 20.2 % (21.2-54.2); Mean Corpuscular HGB Conc 31.7 GM/DL (32-36); Mean Platelet Volume 11.8 FL (9.6-12.0); Monocytes % 8.8 % (1.7-12.7); Neutrophils % 70.2 % (38.7-73.9); Platelet Count 179 T/CUMM (130-400); Red Blood Count 3.59 MC/CUMM (3.8-5.5); Red Cell Distribution Width 15.1 % (9.3-17.3)
[2019-01-02 05:41] LABS: Albumin 3.9 G/DL (3.4-5.0); Bilirubin,Total 1.2 MG/DL (0.2-1.0); Calcium 8.6 MG/DL (8.5-10.1); Osmolality,Calculated 278.2 MOS/KG (273-304); Total Protein 6.8 G/DL (6.4-8.3)
[2019-01-02] MEDS: LABETALOL 200 MG TABLET PO SCH ×3 (08:48→20:27)
[2019-01-02] MEDS: PANTOPRAZOLE 40 MG TABLET PO SCH (08:49)
[2019-01-02] MEDS: DOXYCYCLINE HYCLATE 100 MG CAPSULE PO SCH (08:49)
[2019-01-02] MEDS: amLODIPine 10 MG TABLET PO SCH (08:49)
[2019-01-02] MEDS: ASPIRIN EC 81 MG TABLET PO SCH (08:49)
[2019-01-02] MEDS: AMIODARONE 200 MG TABLET PO SCH (08:49)
[2019-01-02] MEDS: POTASSIUM CHLORIDE 20 MEQ TABLET PO SCH ×2 (08:49→20:27)
[2019-01-02] MEDS: DILTIAZEM 30 MG TABLET PO SCH ×3 (14:56→20:27)
[2019-01-02] MEDS: SIMVASTATIN 20 MG TABLET PO SCH (20:27)
[2019-01-02] MEDS: ENOXAPARIN 40 MG/0.4 ML SYRINGE SUBCUT SCH (20:28)
[2019-01-03] MEDS: ALBUTEROL/IPRATROPIUM 3 ML NEB RESP TX SCH ×4 (00:45→19:26)
[2019-01-03 04:52] LABS: Basophils % 0.2 % (0.0-0.8); Eosinophils # 0.1 10*3/uL (0.0-0.87); Eosinophils % 1.2 % (0.00-10.9); Hematocrit 34.7 VOL% (42.0-52.0); Immature Granulocytes % 0.2 %; Immature Granulocytes Absolute 0.02 #; Lymphocytes # 1.2 10*3/uL (1.4-4.0); Lymphocytes % 13.4 % (21.2-54.2); Mean Corpuscular HGB Conc 31.7 GM/DL (32-36); Mean Corpuscular Volume 94.3 FL (87-102); Mean Platelet Volume 12.4 FL (9.6-12.0); Monocytes % 10.5 % (1.7-12.7); Neutrophils % 74.5 % (38.7-73.9); Platelet Count 160 T/CUMM (130-400); Red Blood Count 3.68 MC/CUMM (3.8-5.5); Red Cell Distribution Width 14.8 % (9.3-17.3); White Blood Count 9.3 T/CUMM (4-12)
[2019-01-03 05:41] LABS: Albumin 3.4 G/DL (3.4-5.0); Bilirubin,Total 0.6 MG/DL (0.2-1.0); Calcium 8.5 MG/DL (8.5-10.1); Osmolality,Calculated 278.4 MOS/KG (273-304); Total Protein 6.3 G/DL (6.4-8.3)
[2019-01-03] MEDS: LABETALOL 200 MG TABLET PO SCH ×2 (08:50→20:49)
[2019-01-03] MEDS: DILTIAZEM 30 MG TABLET PO SCH ×4 (08:50→20:50)
[2019-01-03] MEDS: ASPIRIN EC 81 MG TABLET PO SCH (08:51)
[2019-01-03] MEDS: POTASSIUM CHLORIDE 20 MEQ TABLET PO SCH ×2 (08:51→20:49)
[2019-01-03] MEDS: PANTOPRAZOLE 40 MG TABLET PO SCH (08:51)
[2019-01-03] MEDS: cefTRIAXone 1,000 MG in SYRINGE 1 EACH IV SCH (08:51)
[2019-01-03] MEDS: ENOXAPARIN 40 MG/0.4 ML SYRINGE SUBCUT SCH (20:50)
[2019-01-03] MEDS: SIMVASTATIN 20 MG TABLET PO SCH (20:50)
[2019-01-04] MEDS: ALBUTEROL/IPRATROPIUM 3 ML NEB RESP TX SCH (00:04)
[2019-01-04 04:36] LABS: Basophils % 0.4 % (0.0-0.8); Eosinophils # 0.3 10*3/uL (0.0-0.87); Eosinophils % 3.9 % (0.00-10.9); Hematocrit 35.2 VOL% (42.0-52.0); Hemoglobin 11.2 GM/DL (14.0-18.0); Immature Granulocytes % 0.4 %; Immature Granulocytes Absolute 0.03 #; Lymphocytes % 24.4 % (21.2-54.2); Mean Corpuscular HGB Conc 31.8 GM/DL (32-36); Mean Corpuscular Volume 94.4 FL (87-102); Mean Platelet Volume 12.3 FL (9.6-12.0); Monocytes % 10.1 % (1.7-12.7); Neutrophils % 60.8 % (38.7-73.9); Platelet Count 173 T/CUMM (130-400); Red Blood Count 3.73 MC/CUMM (3.8-5.5); Red Cell Distribution Width 14.9 % (9.3-17.3); White Blood Count 8.1 T/CUMM (4-12)
[2019-01-04 04:45] LABS: Calcium 8.6 MG/DL (8.5-10.1)
[2019-01-04 08:06] VITALS: BP 131/70
[2019-01-04] MEDS: ASPIRIN EC 81 MG TABLET PO SCH (11:27)
[2019-01-04] MEDS: PANTOPRAZOLE 40 MG TABLET PO SCH (11:27)
[2019-01-04] MEDS: POTASSIUM CHLORIDE 20 MEQ TABLET PO SCH (11:28)
[2019-01-04] MEDS: LABETALOL 200 MG TABLET PO SCH (11:28)
[2019-01-04] MEDS: cefTRIAXone 1,000 MG in SYRINGE 1 EACH IV SCH (11:28)
[2019-01-04] MEDS: DILTIAZEM 30 MG TABLET PO SCH (11:28)
== END 2019-01-04 12:38 | disposition home health service (06) | DRG 291 ==
LOC: N.ED 09:14 → N.EDINP 11:42 → SUATTDRO 11:42 → N.2E 12:24
PROVIDERS: ADMIT Hospitalist; ATTEND Internal Medicine

== ENCOUNTER 2019-02-15 12:43 | Inpatient (IN) ==
[2019-02-15] MEDS ORDERED: SODIUM CHLORIDE 0.9% 1,000 ML IV STA (13:20)
[2019-02-15 13:35] LABS: Basophils # 0.1 10*3/uL (0.0-0.2); Basophils % 0.5 % (0.0-0.8); Eosinophils # 0.4 10*3/uL (0.0-0.87); Eosinophils % 3.6 % (0.00-10.9); Hematocrit 37.4 VOL% (42.0-52.0); Hemoglobin 11.8 GM/DL (14.0-18.0); Immature Granulocytes % 0.6 %; Immature Granulocytes Absolute 0.07 #; Lymphocytes # 1.3 10*3/uL (1.4-4.0); Lymphocytes % 10.9 % (21.2-54.2); Mean Corpuscular HGB Conc 31.6 GM/DL (32-36); Mean Corpuscular Volume 92.8 FL (87-102); Mean Platelet Volume 10.7 FL (9.6-12.0); Monocytes % 4.8 % (1.7-12.7); Neutrophils % 79.6 % (38.7-73.9); Platelet Count 222 T/CUMM (130-400); Red Blood Count 4.03 MC/CUMM (3.8-5.5); Red Cell Distribution Width 14.2 % (9.3-17.3); White Blood Count 11.6 T/CUMM (4-12)
[2019-02-15 13:49] LABS: PT Patient Result 11.2 SECS (9.6-12.2); Partial Thromboplastin Time 21.6 SECS (20.8-36.0)
[2019-02-15 13:51] LABS: Troponin I < 0.015 NG/ML (0.00-0.045)
[2019-02-15 13:54] LABS: Albumin 3.8 G/DL (3.4-5.0); Bilirubin,Total 0.6 MG/DL (0.2-1.0); Calcium 8.7 MG/DL (8.5-10.1); Total Protein 7.1 G/DL (6.4-8.3)
[2019-02-15 14:50] LABS: Apearance,Urine CLEAR (Clear); Bacteria,Urine Occasional /HPF (Few); Bilirubin,Urine Negative (Negative); Blood, Urine Negative (Negative); Glucose,Urine (UA) Negative (Negative); Hyaline Casts,Urine 1 /LPF (0-3); Ketones,Urine Negative (Negative); Nitrite,Urine Positive (Negative); Protein,Urine Negative; Squamous Epithelial Cell,Urine Occasional /HPF (0-10); Urine Color Yellow (Yellow); Urine Specific Gravity 1.005 (1.001-1.035); Urine Urobilinogen < 2.0 EU/DL (0.2-1.0); WBC,Urine 4 /HPF (0-6)
[2019-02-15] MEDS ORDERED: ACETAMINOPHEN 325 MG TABLET PO PRN (16:53)
[2019-02-15] MEDS ORDERED: ONDANSETRON 4 MG/2 ML VIAL IV PRN (16:53)
[2019-02-15] MEDS ORDERED: FUROSEMIDE 40 MG TABLET PO PRN (16:55)
[2019-02-15] MEDS ORDERED: POTASSIUM CHLORIDE 20 MEQ TABLET PO ONE (18:00)
[2019-02-15] MEDS ORDERED: LEVOFLOXACIN INJ 500 MG in PREMIX 1 EACH IV ONE (18:30)
[2019-02-15] MEDS: methylPREDNISolone SOD SUC 40 MG/1 ML VIAL IV SCH (19:03)
[2019-02-15] MEDS: ALBUTEROL/IPRATROPIUM 3 ML NEB RESP TX SCH ×2 (19:06→22:44)
[2019-02-15] MEDS: LABETALOL 100 MG TABLET PO SCH (21:15)
[2019-02-15] MEDS: SIMVASTATIN 20 MG TABLET PO SCH (21:15)
[2019-02-16] MEDS: methylPREDNISolone SOD SUC 40 MG/1 ML VIAL IV SCH ×3 (02:13→18:01)
[2019-02-16] MEDS: ALBUTEROL/IPRATROPIUM 3 ML NEB RESP TX SCH ×6 (02:35→22:48)
[2019-02-16 06:02] LABS: Basophils % 0.2 % (0.0-0.8); Hematocrit 34.5 VOL% (42.0-52.0); Immature Granulocytes % 0.5 %; Immature Granulocytes Absolute 0.03 #; Lymphocytes # 0.5 10*3/uL (1.4-4.0); Lymphocytes % 7.8 % (21.2-54.2); Mean Corpuscular HGB Conc 31.9 GM/DL (32-36); Mean Corpuscular Volume 92.5 FL (87-102); Mean Platelet Volume 10.4 FL (9.6-12.0); Monocytes % 0.6 % (1.7-12.7); Neutrophils % 90.9 % (38.7-73.9); Platelet Count 212 T/CUMM (130-400); Red Blood Count 3.73 MC/CUMM (3.8-5.5); Red Cell Distribution Width 14.2 % (9.3-17.3); White Blood Count 6.5 T/CUMM (4-12)
[2019-02-16 06:35] LABS: Lymphocytes 4 % (20-55); Segmented Neutrophils 96 % (50-85); Total Cells Counted 100
[2019-02-16 06:36] LABS: Platelet Estimate Adequate; Polychromasia Few
[2019-02-16 06:55] LABS: Calcium 8.5 MG/DL (8.5-10.1); Osmolality,Calculated 286.1 MOS/KG (273-304); Risk Ratio 3.15; Thyroid Stimulating Hormone 3.6 uIU/ml (0.358-3.74)
[2019-02-16] MEDS ORDERED: PANTOPRAZOLE 40 MG TABLET PO SCH (09:00)
[2019-02-16] MEDS: ASPIRIN EC 81 MG TABLET PO SCH (10:24)
[2019-02-16] MEDS: LABETALOL 100 MG TABLET PO SCH ×2 (10:24→22:16)
[2019-02-16] MEDS: DILTIAZEM CD 120 MG CAPSULE PO SCH (10:25)
[2019-02-16] MEDS: PANTOPRAZOLE 40 MG TABLET PO SCH (10:25)
[2019-02-16] MEDS: cefTRIAXone 1,000 MG in SYRINGE 1 EACH IV SCH (14:35)
[2019-02-16] MEDS: LEVOFLOXACIN INJ 250 MG in PREMIX 1 EACH IV SCH (18:07)
[2019-02-16] MEDS: SIMVASTATIN 20 MG TABLET PO SCH (22:16)
[2019-02-17] MEDS: methylPREDNISolone SOD SUC 40 MG/1 ML VIAL IV SCH ×3 (02:24→18:01)
[2019-02-17 02:53] LABS: Basophils % 0.1 % (0.0-0.8); Hematocrit 33.3 VOL% (42.0-52.0); Hemoglobin 10.4 GM/DL (14.0-18.0); Immature Granulocytes % 0.5 %; Immature Granulocytes Absolute 0.04 #; Lymphocytes # 0.5 10*3/uL (1.4-4.0); Lymphocytes % 6.4 % (21.2-54.2); Mean Corpuscular HGB Conc 31.2 GM/DL (32-36); Mean Corpuscular Volume 93.3 FL (87-102); Mean Platelet Volume 11.2 FL (9.6-12.0); Monocytes % 2.9 % (1.7-12.7); Neutrophils % 90.1 % (38.7-73.9); Platelet Count 216 T/CUMM (130-400); Red Blood Count 3.57 MC/CUMM (3.8-5.5); Red Cell Distribution Width 14.4 % (9.3-17.3); White Blood Count 7.9 T/CUMM (4-12)
[2019-02-17 03:12] LABS: Calcium 9.2 MG/DL (8.5-10.1); Osmolality,Calculated 287.5 MOS/KG (273-304)
[2019-02-17] MEDS: ALBUTEROL/IPRATROPIUM 3 ML NEB RESP TX SCH ×6 (03:47→22:58)
[2019-02-17] MEDS: DILTIAZEM CD 120 MG CAPSULE PO SCH (08:18)
[2019-02-17] MEDS: PANTOPRAZOLE 40 MG TABLET PO SCH (08:18)
[2019-02-17] MEDS: ASPIRIN EC 81 MG TABLET PO SCH (08:18)
[2019-02-17] MEDS: LABETALOL 100 MG TABLET PO SCH ×2 (08:18→21:25)
[2019-02-17] MEDS: cefTRIAXone 1,000 MG in SYRINGE 1 EACH IV SCH (14:11)
[2019-02-17] MEDS: LEVOFLOXACIN INJ 250 MG in PREMIX 1 EACH IV SCH (18:00)
[2019-02-17] MEDS: SIMVASTATIN 20 MG TABLET PO SCH (21:25)
[2019-02-18] MEDS: ALBUTEROL/IPRATROPIUM 3 ML NEB RESP TX SCH ×6 (03:40→23:29)
[2019-02-18] MEDS: methylPREDNISolone SOD SUC 40 MG/1 ML VIAL IV SCH ×3 (04:10→18:25)
[2019-02-18 05:45] LABS: Hematocrit 34.9 VOL% (42.0-52.0); Hemoglobin 11.3 GM/DL (14.0-18.0); Immature Granulocytes % 0.4 %; Immature Granulocytes Absolute 0.04 #; Lymphocytes # 0.5 10*3/uL (1.4-4.0); Lymphocytes % 5.8 % (21.2-54.2); Mean Corpuscular HGB Conc 32.4 GM/DL (32-36); Mean Corpuscular Volume 92.1 FL (87-102); Mean Platelet Volume 11.3 FL (9.6-12.0); Monocytes % 2.8 % (1.7-12.7); Platelet Count 206 T/CUMM (130-400); Red Blood Count 3.79 MC/CUMM (3.8-5.5); Red Cell Distribution Width 14.4 % (9.3-17.3)
[2019-02-18 06:10] LABS: Band Neutrophils 2 % (0-10); Hypochromasia 1+; Lymphocytes 8 % (20-55); Platelet Estimate Adequate; Segmented Neutrophils 89 % (50-85); Total Cells Counted 100
[2019-02-18 06:20] LABS: Calcium 9.1 MG/DL (8.5-10.1); Osmolality,Calculated 289.8 MOS/KG (273-304)
[2019-02-18] MEDS: ASPIRIN EC 81 MG TABLET PO SCH (09:47)
[2019-02-18] MEDS: LABETALOL 100 MG TABLET PO SCH ×2 (09:47→21:13)
[2019-02-18] MEDS: PANTOPRAZOLE 40 MG TABLET PO SCH (09:47)
[2019-02-18] MEDS: DILTIAZEM CD 120 MG CAPSULE PO SCH (09:47)
[2019-02-18] MEDS ORDERED: POTASSIUM CHLORIDE RIDER 10 MEQ in PREMIX 1 EACH IV PRN (10:34)
[2019-02-18] MEDS ORDERED: MAGNESIUM SULF RIDER 2 GM in PREMIX 1 EACH IV PRN (10:34)
[2019-02-18] MEDS: cefTRIAXone 1,000 MG in SYRINGE 1 EACH IV SCH (15:35)
[2019-02-18] MEDS: SIMVASTATIN 20 MG TABLET PO SCH (21:13)
[2019-02-18] MEDS: ZINC OXIDE PASTE 113 GM TUBE TOP SCH (21:15)
[2019-02-19] MEDS ORDERED: DEXTROSE 5% NACL 0.45% 1,000 ML IV SCH (00:01)
[2019-02-19] MEDS: methylPREDNISolone SOD SUC 40 MG/1 ML VIAL IV SCH ×3 (02:26→17:30)
[2019-02-19] MEDS: ALBUTEROL/IPRATROPIUM 3 ML NEB RESP TX SCH ×5 (03:59→19:45)
[2019-02-19 06:16] LABS: Hematocrit 35.4 VOL% (42.0-52.0); Hemoglobin 11.1 GM/DL (14.0-18.0); Immature Granulocytes % 0.4 %; Immature Granulocytes Absolute 0.03 #; Lymphocytes # 0.4 10*3/uL (1.4-4.0); Lymphocytes % 5.6 % (21.2-54.2); Mean Corpuscular HGB Conc 31.4 GM/DL (32-36); Mean Corpuscular Volume 92.7 FL (87-102); Mean Platelet Volume 11.5 FL (9.6-12.0); Monocytes % 2.7 % (1.7-12.7); Neutrophils % 91.3 % (38.7-73.9); Platelet Count 193 T/CUMM (130-400); Red Blood Count 3.82 MC/CUMM (3.8-5.5); Red Cell Distribution Width 14.1 % (9.3-17.3); White Blood Count 6.7 T/CUMM (4-12)
[2019-02-19 06:30] LABS: Calcium 8.8 MG/DL (8.5-10.1); Osmolality,Calculated 293.8 MOS/KG (273-304)
[2019-02-19 07:11] LABS: Lymphocytes 3 % (20-55); Segmented Neutrophils 96 % (50-85); Total Cells Counted 100
[2019-02-19 07:12] LABS: Hypochromasia 1+; Microcytosis 1+; Ovalocytes Slight; Platelet Estimate Adequate
[2019-02-19] MEDS: LABETALOL 100 MG TABLET PO SCH ×2 (08:15→21:42)
[2019-02-19] MEDS: ZINC OXIDE PASTE 113 GM TUBE TOP SCH ×2 (08:16→21:43)
[2019-02-19] MEDS: DILTIAZEM CD 120 MG CAPSULE PO SCH (08:16)
[2019-02-19] MEDS: PANTOPRAZOLE 40 MG TABLET PO SCH (08:16)
[2019-02-19] MEDS: ASPIRIN EC 81 MG TABLET PO SCH (08:16)
[2019-02-19] MEDS ORDERED: DIAZEPAM 5 MG TABLET PO ONE (09:00)
[2019-02-19] MEDS ORDERED: diphenhydrAMINE CAP 25 MG CAPSULE PO ONE (09:00)
[2019-02-19] MEDS ORDERED: LIDOCAINE 1%/EPI INJ 20 ML VIAL ONE (09:32)
[2019-02-19] MEDS ORDERED: HEPARIN/NACL 0.9% 2 UNITS/ML 1,000 ML IV ONE (09:32)
[2019-02-19] MEDS ORDERED: MIDAZOLAM 2 MG/2 ML VIAL ONE (09:50)
[2019-02-19] MEDS ORDERED: fentaNYL 100 MCG/2 ML VIAL ONE (09:50)
[2019-02-19] MEDS ORDERED: FUROSEMIDE 40 MG/4 ML VIAL IV ONE (11:25)
[2019-02-19] MEDS: cefTRIAXone 1,000 MG in SYRINGE 1 EACH IV SCH (14:56)
[2019-02-19] MEDS: SIMVASTATIN 20 MG TABLET PO SCH (21:43)
[2019-02-20] MEDS: ALBUTEROL/IPRATROPIUM 3 ML NEB RESP TX SCH ×7 (00:19→23:19)
[2019-02-20] MEDS: methylPREDNISolone SOD SUC 40 MG/1 ML VIAL IV SCH ×3 (02:36→17:37)
[2019-02-20 05:19] LABS: Hematocrit 35.6 VOL% (42.0-52.0); Hemoglobin 11.7 GM/DL (14.0-18.0); Immature Granulocytes % 0.5 %; Immature Granulocytes Absolute 0.03 #; Lymphocytes # 0.2 10*3/uL (1.4-4.0); Lymphocytes % 3.7 % (21.2-54.2); Mean Corpuscular HGB Conc 32.9 GM/DL (32-36); Mean Corpuscular Volume 90.1 FL (87-102); Mean Platelet Volume 11.7 FL (9.6-12.0); Monocytes % 3.4 % (1.7-12.7); Neutrophils % 92.4 % (38.7-73.9); Platelet Count 184 T/CUMM (130-400); Red Blood Count 3.95 MC/CUMM (3.8-5.5); White Blood Count 6.2 T/CUMM (4-12)
[2019-02-20 05:39] LABS: Calcium 8.2 MG/DL (8.5-10.1); Osmolality,Calculated 296.5 MOS/KG (273-304)
[2019-02-20 05:41] LABS: Hypochromasia 1+; Lymphocytes 8 % (20-55); Ovalocytes Slight; Platelet Estimate Adequate; Segmented Neutrophils 90 % (50-85); Total Cells Counted 100
[2019-02-20 05:42] LABS: Microcytosis 1+
[2019-02-20] MEDS: CLOPIDOGREL 75 MG TABLET PO SCH (08:47)
[2019-02-20] MEDS: PANTOPRAZOLE 40 MG TABLET PO SCH (08:47)
[2019-02-20] MEDS: ASPIRIN EC 81 MG TABLET PO SCH (08:47)
[2019-02-20] MEDS: LABETALOL 100 MG TABLET PO SCH ×2 (08:47→21:16)
[2019-02-20] MEDS: DILTIAZEM CD 120 MG CAPSULE PO SCH (08:53)
[2019-02-20] MEDS: ZINC OXIDE PASTE 113 GM TUBE TOP SCH (09:38)
[2019-02-20] MEDS: cefTRIAXone 1,000 MG in SYRINGE 1 EACH IV SCH (14:26)
[2019-02-20] MEDS: SIMVASTATIN 20 MG TABLET PO SCH (21:16)
[2019-02-21] MEDS: ALBUTEROL/IPRATROPIUM 3 ML NEB RESP TX SCH ×5 (02:33→22:50)
[2019-02-21] MEDS: methylPREDNISolone SOD SUC 40 MG/1 ML VIAL IV SCH ×3 (03:06→18:18)
[2019-02-21] MEDS: ZINC OXIDE PASTE 113 GM TUBE TOP SCH ×2 (05:10→13:20)
[2019-02-21 06:03] LABS: Basophils % 0.1 % (0.0-0.8); Hematocrit 36.4 VOL% (42.0-52.0); Hemoglobin 12.2 GM/DL (14.0-18.0); Immature Granulocytes % 0.6 %; Immature Granulocytes Absolute 0.05 #; Lymphocytes # 0.3 10*3/uL (1.4-4.0); Lymphocytes % 3.5 % (21.2-54.2); Mean Corpuscular HGB Conc 33.5 GM/DL (32-36); Mean Corpuscular Volume 90.1 FL (87-102); Mean Platelet Volume 11.8 FL (9.6-12.0); Neutrophils % 91.8 % (38.7-73.9); Platelet Count 183 T/CUMM (130-400); Red Blood Count 4.04 MC/CUMM (3.8-5.5); Red Cell Distribution Width 13.9 % (9.3-17.3)
[2019-02-21 06:30] LABS: Lymphocytes 1 % (20-55); Platelet Estimate Adequate; Polychromasia Few; Segmented Neutrophils 98 % (50-85); Total Cells Counted 100
[2019-02-21 06:31] LABS: Calcium 8.6 MG/DL (8.5-10.1); Osmolality,Calculated 296.5 MOS/KG (273-304)
[2019-02-21] MEDS: DILTIAZEM CD 120 MG CAPSULE PO SCH (08:15)
[2019-02-21] MEDS: LABETALOL 100 MG TABLET PO SCH ×2 (08:15→20:45)
[2019-02-21] MEDS: CLOPIDOGREL 75 MG TABLET PO SCH (08:15)
[2019-02-21] MEDS: PANTOPRAZOLE 40 MG TABLET PO SCH (08:16)
[2019-02-21] MEDS: ASPIRIN EC 81 MG TABLET PO SCH (08:16)
[2019-02-21] MEDS: cefTRIAXone 1,000 MG in SYRINGE 1 EACH IV SCH (14:44)
[2019-02-21] MEDS: SIMVASTATIN 20 MG TABLET PO SCH (20:45)
[2019-02-22] MEDS: ALBUTEROL/IPRATROPIUM 3 ML NEB RESP TX SCH ×4 (02:45→11:22)
[2019-02-22] MEDS: methylPREDNISolone SOD SUC 40 MG/1 ML VIAL IV SCH ×2 (03:30→12:14)
[2019-02-22] MEDS: ZINC OXIDE PASTE 113 GM TUBE TOP SCH ×2 (04:02→10:27)
[2019-02-22 05:19] LABS: Basophils % 0.1 % (0.0-0.8); Hematocrit 37.1 VOL% (42.0-52.0); Hemoglobin 12.5 GM/DL (14.0-18.0); Immature Granulocytes % 0.6 %; Immature Granulocytes Absolute 0.05 #; Lymphocytes # 0.3 10*3/uL (1.4-4.0); Lymphocytes % 3.1 % (21.2-54.2); Mean Corpuscular HGB Conc 33.7 GM/DL (32-36); Mean Corpuscular Volume 89.4 FL (87-102); Mean Platelet Volume 11.9 FL (9.6-12.0); Monocytes % 2.9 % (1.7-12.7); Neutrophils % 93.3 % (38.7-73.9); Platelet Count 190 T/CUMM (130-400); Red Blood Count 4.15 MC/CUMM (3.8-5.5); Red Cell Distribution Width 13.7 % (9.3-17.3); White Blood Count 8.3 T/CUMM (4-12)
[2019-02-22 05:47] LABS: Hypochromasia 1+; Lymphocytes 2 % (20-55); Microcytosis 1+; Platelet Estimate Adequate; Segmented Neutrophils 96 % (50-85); Total Cells Counted 100
[2019-02-22 05:58] LABS: Calcium 8.3 MG/DL (8.5-10.1); Osmolality,Calculated 293.8 MOS/KG (273-304)
[2019-02-22] MEDS ORDERED: POTASSIUM CHLORIDE 20 MEQ TABLET PO PRN (08:34)
[2019-02-22] MEDS ORDERED: NITROGLYCERIN SL 0.4 MG TABLET SL PRN (09:11)
[2019-02-22] MEDS: DILTIAZEM CD 120 MG CAPSULE PO SCH (09:38)
[2019-02-22] MEDS: CLOPIDOGREL 75 MG TABLET PO SCH (09:38)
[2019-02-22] MEDS: PANTOPRAZOLE 40 MG TABLET PO SCH (09:39)
[2019-02-22] MEDS: ASPIRIN EC 81 MG TABLET PO SCH (09:39)
[2019-02-22] MEDS: LABETALOL 100 MG TABLET PO SCH (09:39)
[2019-02-22] MEDS: INSULIN LISPRO 100 UNIT/ML SUBCUT SCH ×2 (09:39→13:03)
[2019-02-22 11:54] VITALS: BP 144/76
== END 2019-02-22 13:35 | disposition home health service (06) | DRG 287 ==
LOC: N.ED 12:43 → N.EDINP 16:53 → N.2E 17:22 → N.TELEN 02-17 11:09
PROVIDERS: ADMIT Hospitalist; ATTEND Hospitalist
PROC: CLCCHCL (ICD-10-PCS; 2019-02-19 09:45)

== ENCOUNTER 2019-03-04 06:01 | Inpatient (IN) ==
[~2019-03-04 06:01] MED LIST: DEXTROSE 5% NACL 0.45% 1,000 ML IV SCH
[2019-03-04] MEDS ORDERED: LIDOCAINE 1%/EPI INJ 20 ML VIAL ONE (06:49)
[2019-03-04] MEDS ORDERED: HEPARIN/NACL 0.9% 2 UNITS/ML 1,000 ML IV ONE (06:49)
[2019-03-04] MEDS ORDERED: diphenhydrAMINE CAP 25 MG CAPSULE PO ONE (06:52)
[2019-03-04] MEDS ORDERED: POTASSIUM CHLORIDE RIDER 10 MEQ in PREMIX 1 EACH IV PRN (06:52)
[2019-03-04] MEDS ORDERED: ASPIRIN 325 MG TABLET PO ONE (06:52)
[2019-03-04] MEDS ORDERED: DIAZEPAM 5 MG TABLET PO ONE (06:52)
[2019-03-04] MEDS ORDERED: MAGNESIUM SULF RIDER 2 GM in PREMIX 1 EACH IV PRN (06:52)
[2019-03-04] MEDS ORDERED: fentaNYL 100 MCG/2 ML VIAL ONE (07:15)
[2019-03-04] MEDS ORDERED: MIDAZOLAM 2 MG/2 ML VIAL ONE ×3 (07:15→09:44)
[2019-03-04 07:37] LABS: Calcium 8.3 MG/DL (8.5-10.1); Osmolality,Calculated 281.5 MOS/KG (273-304)
[2019-03-04] MEDS ORDERED: HEPARIN 5,000 UNIT/1 ML VIAL ONE ×3 (07:57→08:31)
[2019-03-04] MEDS ORDERED: NITROPRUSSIDE 50 MG/2 ML VIAL ONE (08:00)
[2019-03-04] MEDS ORDERED: HEPARIN/NACL 0.9% 2 UNITS/ML 500 ML IV ONE (08:05)
[2019-03-04] MEDS ORDERED: TICAGRELOR 90 MG TABLET ONE (09:05)
[2019-03-04] MEDS ORDERED: FUROSEMIDE 40 MG TABLET PO PRN (13:16)
[2019-03-04] MEDS ORDERED: POTASSIUM CHLORIDE 20 MEQ TABLET PO PRN (13:16)
[2019-03-04] MEDS ORDERED: MAGNESIUM HYDROXIDE SUSP 30 ML UDCUP PO PRN (13:17)
[2019-03-04] MEDS ORDERED: diphenhydrAMINE CAP 25 MG CAPSULE PO PRN (13:17)
[2019-03-04] MEDS ORDERED: DEXTROSE 50% 25 GM/50 ML VIAL IV PRN (13:17)
[2019-03-04] MEDS ORDERED: GLUCAGON 1 MG VIAL IM PRN (13:17)
[2019-03-04] MEDS: INSULIN REGULAR 100 UNIT/ML SUBCUT SCH ×2 (17:09→21:30)
[2019-03-04] MEDS: TICAGRELOR 90 MG TABLET PO SCH (21:27)
[2019-03-04] MEDS: SIMVASTATIN 20 MG TABLET PO SCH (21:27)
[2019-03-04] MEDS: LABETALOL 100 MG TABLET PO SCH (21:28)
[2019-03-05 04:16] LABS: Basophils % 0.2 % (0.0-0.8); Eosinophils # 0.2 10*3/uL (0.0-0.87); Eosinophils % 1.3 % (0.00-10.9); Hematocrit 31.8 VOL% (42.0-52.0); Hemoglobin 10.2 GM/DL (14.0-18.0); Immature Granulocytes % 0.4 %; Immature Granulocytes Absolute 0.05 #; Lymphocytes # 0.6 10*3/uL (1.4-4.0); Lymphocytes % 4.9 % (21.2-54.2); Mean Corpuscular HGB Conc 32.1 GM/DL (32-36); Mean Corpuscular Volume 92.2 FL (87-102); Mean Platelet Volume 10.5 FL (9.6-12.0); Monocytes % 5.8 % (1.7-12.7); Neutrophils % 87.4 % (38.7-73.9); Platelet Count 110 T/CUMM (130-400); Red Blood Count 3.45 MC/CUMM (3.8-5.5); Red Cell Distribution Width 14.8 % (9.3-17.3); White Blood Count 11.1 T/CUMM (4-12)
[2019-03-05 04:22] LABS: Calcium 8.2 MG/DL (8.5-10.1); Osmolality,Calculated 284.3 MOS/KG (273-304)
[2019-03-05 04:45] LABS: Band Neutrophils 2 % (0-10); Eosinophils 2 % (0-10); Hypochromasia Slight; Lymphocytes 5 % (20-55); Platelet Estimate Decreased; Segmented Neutrophils 86 % (50-85); Total Cells Counted 100
[2019-03-05] MEDS: INSULIN REGULAR 100 UNIT/ML SUBCUT SCH ×4 (07:44→20:54)
[2019-03-05] MEDS: PANTOPRAZOLE 40 MG TABLET PO SCH (08:06)
[2019-03-05] MEDS: ASPIRIN EC 81 MG TABLET PO SCH (08:06)
[2019-03-05] MEDS: LABETALOL 100 MG TABLET PO SCH ×2 (08:06→20:54)
[2019-03-05] MEDS: TICAGRELOR 90 MG TABLET PO SCH (08:06)
[2019-03-05] MEDS: DILTIAZEM CD 120 MG CAPSULE PO SCH (08:06)
[2019-03-05] MEDS ORDERED: MAGNESIUM SULF RIDER 2 GM in PREMIX 1 EACH IV PRN (11:11)
[2019-03-05] MEDS ORDERED: MAGNESIUM SULF RIDER 4 GM in PREMIX 1 EACH IV PRN (11:11)
[2019-03-05] MEDS ORDERED: POTASSIUM CHLORIDE 20 MEQ TABLET PO ONE (11:11)
[2019-03-05] MEDS ORDERED: POTASSIUM CHLORIDE 20 MEQ TABLET PO PRN (11:11)
[2019-03-05] MEDS ORDERED: CLOPIDOGREL 300 MG TABLET PO ONE (13:22)
[2019-03-05] MEDS: SIMVASTATIN 20 MG TABLET PO SCH (20:54)
[2019-03-05] MEDS: POTASSIUM CHLORIDE 20 MEQ TABLET PO SCH (20:54)
[2019-03-05] MEDS ORDERED: TICAGRELOR 90 MG TABLET PO ONE (21:00)
[2019-03-06 06:56] LABS: Basophils % 0.2 % (0.0-0.8); Eosinophils # 0.3 10*3/uL (0.0-0.87); Eosinophils % 2.5 % (0.00-10.9); Hematocrit 31.9 VOL% (42.0-52.0); Hemoglobin 10.1 GM/DL (14.0-18.0); Immature Granulocytes % 0.5 %; Immature Granulocytes Absolute 0.05 #; Lymphocytes # 0.9 10*3/uL (1.4-4.0); Lymphocytes % 9.4 % (21.2-54.2); Mean Corpuscular HGB Conc 31.7 GM/DL (32-36); Mean Corpuscular Volume 93.5 FL (87-102); Mean Platelet Volume 10.8 FL (9.6-12.0); Monocytes % 5.5 % (1.7-12.7); Neutrophils % 81.9 % (38.7-73.9); Platelet Count 108 T/CUMM (130-400); Red Blood Count 3.41 MC/CUMM (3.8-5.5); White Blood Count 9.9 T/CUMM (4-12)
[2019-03-06 07:20] LABS: Calcium 8.7 MG/DL (8.5-10.1); Osmolality,Calculated 285.3 MOS/KG (273-304)
[2019-03-06] MEDS: INSULIN REGULAR 100 UNIT/ML SUBCUT SCH (07:42)
[2019-03-06 08:08] VITALS: BP 124/68
[2019-03-06] MEDS: ASPIRIN EC 81 MG TABLET PO SCH (08:50)
[2019-03-06] MEDS: DILTIAZEM CD 120 MG CAPSULE PO SCH (08:50)
[2019-03-06] MEDS: POTASSIUM CHLORIDE 20 MEQ TABLET PO SCH (08:51)
[2019-03-06] MEDS: LABETALOL 100 MG TABLET PO SCH (08:51)
[2019-03-06] MEDS: PANTOPRAZOLE 40 MG TABLET PO SCH (08:51)
[2019-03-06] MEDS ORDERED: CLOPIDOGREL 75 MG TABLET PO SCH (09:00)
== END 2019-03-06 10:33 | disposition home health service (06) | DRG 215 ==
LOC: INTOOBSV 06:01 → N.CVR 06:01 → N.ICU 11:00 → N.TELEN 03-05 12:31
PROVIDERS: ADMIT Internal Medicine Interventional Cardiology; ATTEND Internal Medicine Interventional Cardiology

== ENCOUNTER 2020-06-19 10:28 | Inpatient (IN) ==
[2020-06-19 11:25] LABS: Basophils % 0.4 % (0.0-0.8); Eosinophils # 0.1 10*3/uL (0.0-0.87); Eosinophils % 1.4 % (0.00-10.9); Hematocrit 37.5 VOL% (42.0-52.0); Hemoglobin 11.5 GM/DL (14.0-18.0); Immature Granulocytes % 0.3 %; Immature Granulocytes Absolute 0.03 #; Lymphocytes # 1.1 10*3/uL (1.4-4.0); Lymphocytes % 11.6 % (21.2-54.2); Mean Corpuscular HGB Conc 30.7 GM/DL (32-36); Mean Corpuscular Volume 75.2 FL (87-102); Mean Platelet Volume 10.2 FL (9.6-12.0); Monocytes % 8.8 % (1.7-12.7); Neutrophils % 77.5 % (38.7-73.9); Platelet Count 351 T/CUMM (130-400); Red Blood Count 4.99 MC/CUMM (3.8-5.5); Red Cell Distribution Width 19.1 % (9.3-17.3); White Blood Count 9.1 T/CUMM (4-12)
[2020-06-19] MEDS ORDERED: cefTRIAXone 1,000 MG in SODIUM CHLORIDE 0.9% 100 ML IV STA (11:40)
[2020-06-19 11:52] LABS: Albumin 3.7 G/DL (3.4-5.0); Bilirubin,Total 1.3 MG/DL (0.2-1.0); Calcium 9.2 MG/DL (8.5-10.1); Osmolality,Calculated 281.5 MOS/KG (273-304); Potassium 3.9 MMOL/L (3.5-5.1); Total Protein 7.3 G/DL (6.4-8.3)
[2020-06-19] MEDS ORDERED: cefTRIAXone 1,000 MG VIAL ONE (11:53)
[2020-06-19 12:41] LABS: Bacteria,Urine Occasional /HPF (Few); Bilirubin,Urine Negative (Negative); Blood, Urine Small mg/dL (Negative); Glucose,Urine (UA) Negative (Negative); Ketones,Urine Negative (Negative); Mucus,Urine Occasional /LPF (Occasional); Nitrite,Urine Negative (Negative); Protein,Urine Negative; RBC,Urine 2 /HPF (0-4); Urine Appearance Slightly Hazy (Clear); Urine Color Yellow (Yellow); Urine Specific Gravity 1.009 (1.001-1.035); Urine Urobilinogen < 2.0 EU/DL (0.2-1.0); WBC,Urine 9 /HPF (0-6)
[2020-06-19] MEDS ORDERED: DEXTROSE 50% 25 GM/50 ML VIAL IV PRN (13:10)
[2020-06-19] MEDS ORDERED: GLUCAGON 1 MG VIAL IM PRN (13:10)
[2020-06-19] MEDS ORDERED: ONDANSETRON 4 MG/2 ML VIAL IV PRN (13:10)
[2020-06-19] MEDS ORDERED: ENOXAPARIN 40 MG/0.4 ML SYRINGE SUBCUT SCH (13:30)
[2020-06-19] MEDS ORDERED: AZITHROMYCIN INJ 500 MG in SODIUM CHLORIDE 0.9% 250 ML IV SCH (13:30)
[2020-06-19] MEDS: SODIUM CHLORIDE 0.9% 1,000 ML IV SCH (14:56)
[2020-06-19] MEDS: PANTOPRAZOLE 40 MG TABLET PO SCH (15:03)
[2020-06-19 16:08] LABS: Ferritin 74.3 ng/ml (26-388)
[2020-06-19 16:15] LABS: Thyroid Stimulating Hormone 0.942 uIU/ml (0.358-3.74)
[2020-06-19] MEDS ORDERED: INSULIN REGULAR 100 UNIT/ML SUBCUT SCH (16:30)
[2020-06-19] MEDS: CEFEPIME 1,000 MG in SODIUM CHLORIDE 0.9% 100 ML IV SCH ×2 (16:56→22:21)
[2020-06-19] MEDS: INSULIN REGULAR 100 UNIT/ML SUBCUT SCH ×2 (18:11→20:45)
[2020-06-19] MEDS ORDERED: ALBUTEROL 2.5 MG/3 ML NEB RESP TX SCH (19:00)
[2020-06-19] MEDS ORDERED: ALBUTEROL/IPRATROPIUM 3 ML NEB RESP TX PRN (19:00)
[2020-06-19] MEDS: ALBUTEROL/IPRATROPIUM 3 ML NEB RESP TX SCH (19:48)
[2020-06-19] MEDS: ENOXAPARIN 30 MG/0.3 ML SYRINGE SUBCUT SCH (20:41)
[2020-06-19] MEDS ORDERED: SIMVASTATIN 20 MG TABLET PO SCH (21:00)
[2020-06-20] MEDS: ALBUTEROL/IPRATROPIUM 3 ML NEB RESP TX SCH ×4 (01:06→19:32)
[2020-06-20] MEDS: CEFEPIME 1,000 MG in SODIUM CHLORIDE 0.9% 100 ML IV SCH ×4 (04:32→21:07)
[2020-06-20 05:56] LABS: Basophils % 0.4 % (0.0-0.8); Eosinophils # 0.1 10*3/uL (0.0-0.87); Eosinophils % 1.3 % (0.00-10.9); Hematocrit 34.1 VOL% (42.0-52.0); Hemoglobin 10.4 GM/DL (14.0-18.0); Immature Granulocytes % 0.3 %; Immature Granulocytes Absolute 0.02 #; Lymphocytes # 0.9 10*3/uL (1.4-4.0); Mean Corpuscular HGB Conc 30.5 GM/DL (32-36); Mean Corpuscular Volume 76.3 FL (87-102); Mean Platelet Volume 10.4 FL (9.6-12.0); Monocytes % 11.2 % (1.7-12.7); Neutrophils % 74.8 % (38.7-73.9); Platelet Count 293 T/CUMM (130-400); Red Blood Count 4.47 MC/CUMM (3.8-5.5); Red Cell Distribution Width 19.4 % (9.3-17.3); White Blood Count 7.7 T/CUMM (4-12)
[2020-06-20] MEDS: LEVOTHYROXINE 100 MCG TABLET PO SCH (06:23)
[2020-06-20 06:37] LABS: Albumin 3.1 G/DL (3.4-5.0); Bilirubin,Total 1.4 MG/DL (0.2-1.0); Calcium 8.5 MG/DL (8.5-10.1); Osmolality,Calculated 276.8 MOS/KG (273-304); Potassium 3.6 MMOL/L (3.5-5.1); Total Protein 6.9 G/DL (6.4-8.3)
[2020-06-20] MEDS ORDERED: DILTIAZEM CD 120 MG CAPSULE PO SCH ×2 (09:00→11:13)
[2020-06-20] MEDS: INSULIN REGULAR 100 UNIT/ML SUBCUT SCH ×4 (09:20→21:07)
[2020-06-20] MEDS: SODIUM CHLORIDE 0.9% 1,000 ML IV SCH ×2 (09:20→15:25)
[2020-06-20] MEDS: PANTOPRAZOLE 40 MG TABLET PO SCH (09:21)
[2020-06-20] MEDS: ASPIRIN EC 81 MG TABLET PO SCH (09:21)
[2020-06-20] MEDS: FUROSEMIDE 40 MG TABLET PO SCH ×2 (12:17→15:09)
[2020-06-20] MEDS: POTASSIUM CHLORIDE 20 MEQ TABLET PO SCH (12:18)
[2020-06-20] MEDS: LABETALOL 100 MG TABLET PO SCH ×2 (12:18→21:07)
[2020-06-20] MEDS: ATORVASTATIN 20 MG TABLET PO SCH (21:07)
[2020-06-20] MEDS: ENOXAPARIN 30 MG/0.3 ML SYRINGE SUBCUT SCH (21:15)
[2020-06-21] MEDS: ALBUTEROL/IPRATROPIUM 3 ML NEB RESP TX SCH ×4 (01:43→20:13)
[2020-06-21 03:59] LABS: Basophils % 0.3 % (0.0-0.8); Eosinophils % 0.4 % (0.00-10.9); Hematocrit 31.8 VOL% (42.0-52.0); Hemoglobin 9.7 GM/DL (14.0-18.0); Immature Granulocytes % 0.6 %; Immature Granulocytes Absolute 0.06 #; Lymphocytes # 1.1 10*3/uL (1.4-4.0); Mean Corpuscular HGB Conc 30.5 GM/DL (32-36); Mean Corpuscular Volume 75.9 FL (87-102); Mean Platelet Volume 9.9 FL (9.6-12.0); Monocytes % 12.9 % (1.7-12.7); Neutrophils % 75.8 % (38.7-73.9); Platelet Count 239 T/CUMM (130-400); Red Blood Count 4.19 MC/CUMM (3.8-5.5); Red Cell Distribution Width 19.7 % (9.3-17.3); White Blood Count 10.6 T/CUMM (4-12)
[2020-06-21 04:18] LABS: Albumin 2.8 G/DL (3.4-5.0); Bilirubin,Total 1.3 MG/DL (0.2-1.0); Calcium 8.9 MG/DL (8.5-10.1); Potassium 3.7 MMOL/L (3.5-5.1); Total Protein 6.9 G/DL (6.4-8.3)
[2020-06-21] MEDS: CEFEPIME 1,000 MG in SODIUM CHLORIDE 0.9% 100 ML IV SCH ×4 (04:41→21:07)
[2020-06-21] MEDS: LEVOTHYROXINE 100 MCG TABLET PO SCH (05:59)
[2020-06-21] MEDS: FUROSEMIDE 40 MG TABLET PO SCH ×2 (08:40→15:40)
[2020-06-21] MEDS: ASPIRIN EC 81 MG TABLET PO SCH (08:40)
[2020-06-21] MEDS: PANTOPRAZOLE 40 MG TABLET PO SCH (08:40)
[2020-06-21] MEDS: POTASSIUM CHLORIDE 20 MEQ TABLET PO SCH (08:41)
[2020-06-21] MEDS: LABETALOL 100 MG TABLET PO SCH ×2 (08:42→20:21)
[2020-06-21] MEDS: INSULIN REGULAR 100 UNIT/ML SUBCUT SCH ×4 (08:44→20:19)
[2020-06-21] MEDS ORDERED: AZITHROMYCIN 250 MG TABLET PO SCH (09:00)
[2020-06-21] MEDS: ENOXAPARIN 30 MG/0.3 ML SYRINGE SUBCUT SCH (20:21)
[2020-06-21] MEDS: ATORVASTATIN 20 MG TABLET PO SCH (20:21)
[2020-06-22] MEDS: ALBUTEROL/IPRATROPIUM 3 ML NEB RESP TX SCH ×2 (02:00→07:56)
[2020-06-22] MEDS: CEFEPIME 1,000 MG in SODIUM CHLORIDE 0.9% 100 ML IV SCH ×2 (03:30→09:05)
[2020-06-22] MEDS: LEVOTHYROXINE 100 MCG TABLET PO SCH (05:34)
[2020-06-22 05:44] LABS: Basophils % 0.3 % (0.0-0.8); Eosinophils % 0.2 % (0.00-10.9); Hematocrit 31.2 VOL% (42.0-52.0); Hemoglobin 9.8 GM/DL (14.0-18.0); Immature Granulocytes % 0.4 %; Immature Granulocytes Absolute 0.05 #; Lymphocytes % 8.2 % (21.2-54.2); Mean Corpuscular HGB Conc 31.4 GM/DL (32-36); Mean Corpuscular Volume 75.5 FL (87-102); Monocytes % 10.7 % (1.7-12.7); Neutrophils % 80.2 % (38.7-73.9); Platelet Count 244 T/CUMM (130-400); Red Blood Count 4.13 MC/CUMM (3.8-5.5); Red Cell Distribution Width 19.9 % (9.3-17.3); White Blood Count 12.1 T/CUMM (4-12)
[2020-06-22 06:13] LABS: Albumin 2.6 G/DL (3.4-5.0); Bilirubin,Total 1.1 MG/DL (0.2-1.0); Potassium 3.6 MMOL/L (3.5-5.1); Total Protein 7.2 G/DL (6.4-8.3)
[2020-06-22] MEDS: INSULIN REGULAR 100 UNIT/ML SUBCUT SCH ×4 (09:00→20:17)
[2020-06-22] MEDS: ASPIRIN EC 81 MG TABLET PO SCH (09:01)
[2020-06-22] MEDS: FUROSEMIDE 40 MG TABLET PO SCH ×2 (09:01→16:24)
[2020-06-22] MEDS: LABETALOL 100 MG TABLET PO SCH (09:01)
[2020-06-22] MEDS: PANTOPRAZOLE 40 MG TABLET PO SCH (09:01)
[2020-06-22] MEDS: POTASSIUM CHLORIDE 20 MEQ TABLET PO SCH (09:01)
[2020-06-22] MEDS: CLOPIDOGREL 75 MG TABLET PO SCH (13:26)
[2020-06-22] MEDS: CEFUROXIME 250 MG TABLET PO SCH ×2 (13:27→20:20)
[2020-06-22] MEDS: ENOXAPARIN 30 MG/0.3 ML SYRINGE SUBCUT SCH (20:20)
[2020-06-22] MEDS: ATORVASTATIN 80 MG TABLET PO SCH (20:20)
[2020-06-23] MEDS: LEVOTHYROXINE 100 MCG TABLET PO SCH (05:36)
[2020-06-23] MEDS: INSULIN REGULAR 100 UNIT/ML SUBCUT SCH ×4 (08:19→21:13)
[2020-06-23] MEDS: CEFUROXIME 250 MG TABLET PO SCH ×2 (08:22→20:36)
[2020-06-23] MEDS: ASPIRIN EC 81 MG TABLET PO SCH (08:22)
[2020-06-23] MEDS: POTASSIUM CHLORIDE 20 MEQ TABLET PO SCH (08:22)
[2020-06-23] MEDS: CLOPIDOGREL 75 MG TABLET PO SCH (08:23)
[2020-06-23] MEDS: PANTOPRAZOLE 40 MG TABLET PO SCH (08:23)
[2020-06-23] MEDS: FUROSEMIDE 40 MG TABLET PO SCH ×2 (08:23→16:12)
[2020-06-23] MEDS ORDERED: TUBERCULIN SKIN TEST 0.1 ML SYRINGE INTRADERM ONE (11:33)
[2020-06-23] MEDS: ATORVASTATIN 80 MG TABLET PO SCH (20:36)
[2020-06-23] MEDS: ENOXAPARIN 30 MG/0.3 ML SYRINGE SUBCUT SCH (20:37)
[2020-06-23] MEDS ORDERED: LABETALOL 100 MG TABLET PO ONE (22:55)
[2020-06-24] MEDS: LEVOTHYROXINE 100 MCG TABLET PO SCH (05:43)
[2020-06-24] MEDS: FUROSEMIDE 40 MG TABLET PO SCH (08:37)
[2020-06-24] MEDS: PANTOPRAZOLE 40 MG TABLET PO SCH (08:37)
[2020-06-24] MEDS: POTASSIUM CHLORIDE 20 MEQ TABLET PO SCH (08:38)
[2020-06-24] MEDS: ASPIRIN EC 81 MG TABLET PO SCH (08:38)
[2020-06-24] MEDS: INSULIN REGULAR 100 UNIT/ML SUBCUT SCH ×4 (08:38→18:00)
[2020-06-24] MEDS: CEFUROXIME 250 MG TABLET PO SCH (08:38)
[2020-06-24] MEDS: CLOPIDOGREL 75 MG TABLET PO SCH (08:38)
[2020-06-24 10:40] LABS: ABG HCO3 26.2 MMOL/L (20-26); ABG PCO2 40.8 MM HG (35-48); ABG PH 7.421 (7.35-7.45); ABG TCO2 23.8 MMOL/L (23-27); Pt O2 Delivery Device Ventilator
[2020-06-24 10:47] LABS: Alanine Aminotransferase 284 U/L (16-61); Albumin 2.7 G/DL (3.4-5.0); Alkaline Phosphatase 186 U/L (45-117); Aspartate Amino Transferase 934 U/L (0-37); Blood Urea Nitrogen 46 MG/DL (7-18); Calcium 9.7 MG/DL (8.5-10.1); Carbon Dioxide 29 MMOL/L (21-32); Estimated Glom Filtration Rate 33 ML/MIN; Glucose 175 MG/DL (74-106); Osmolality,Calculated 307.4 MOS/KG (273-304); Potassium 4.7 MMOL/L (3.5-5.1); Sodium 147 MMOL/L (136-145); Total Protein 7.4 G/DL (6.4-8.3)
[2020-06-24 10:48] LABS: Troponin I 0.847 NG/ML (0.00-0.045)
[2020-06-24 11:01] LABS: Basophils # 0.1 10*3/uL (0.0-0.2); Basophils % 0.3 % (0.0-0.8); Hematocrit 41.9 VOL% (42.0-52.0); Immature Granulocytes Absolute 0.24 #; Lymphocytes # 6.1 10*3/uL (1.4-4.0); Lymphocytes % 25.5 % (21.2-54.2); Mean Corpuscular HGB Conc 29.8 GM/DL (32-36); Mean Corpuscular Volume 78.8 FL (87-102); Mean Platelet Volume 11.9 FL (9.6-12.0); Monocytes % 7.6 % (1.7-12.7); NRBC # 0.02 10*3/uL; Neutrophils % 65.6 % (38.7-73.9); Red Cell Distribution Width 21.3 % (9.3-17.3)
[2020-06-24 11:02] LABS: Hemoglobin 12.5 GM/DL (14.0-18.0); Platelet Count 380 T/CUMM (130-400); Red Blood Count 5.32 MC/CUMM (3.8-5.5); White Blood Count 23.8 T/CUMM (4-12)
[2020-06-24 11:07] LABS: Hypochromasia 1+; Lymphocytes 20 % (20-55); Microcytosis 1+; Ovalocytes Slight; Platelet Estimate Adequate; Segmented Neutrophils 69 % (50-85); Total Cells Counted 100
[2020-06-24] MEDS: SODIUM CHLORIDE 0.45% 1,000 ML IV SCH ×2 (13:10→22:59)
[2020-06-24] MEDS: cefTRIAXone 1,000 MG in SYRINGE 1 EACH IV SCH (15:30)
[2020-06-24] MEDS ORDERED: CEFUROXIME 250 MG TABLET PO SCH (21:00)
[2020-06-24] MEDS: CLINDAMYCIN INJ 900 MG in PREMIX 1 EACH IV SCH (21:14)
[2020-06-24] MEDS: ENOXAPARIN 30 MG/0.3 ML SYRINGE SUBCUT SCH (21:14)
[2020-06-24] MEDS: ATORVASTATIN 80 MG TABLET PO SCH (21:14)
[2020-06-24] MEDS ORDERED: SODIUM CHLORIDE 0.9% 500 ML IV ONE (22:27)
[2020-06-25] MEDS: INSULIN REGULAR 100 UNIT/ML SUBCUT SCH ×4 (00:46→18:00)
[2020-06-25] MEDS ORDERED: SODIUM CHLORIDE 0.9% 250 ML IV ONE (01:33)
[2020-06-25 03:41] LABS: ABG HCO3 27.1 MMOL/L (20-26); ABG Oxygen Saturation 99.9 % (95-100); ABG PCO2 34.8 MM HG (35-48); ABG PH 7.485 (7.35-7.45); ABG TCO2 23.6 MMOL/L (23-27); Allen Test Positive; Pt O2 Delivery Device Ventilator
[2020-06-25 04:03] LABS: Basophils % 0.2 % (0.0-0.8); Eosinophils % 0.1 % (0.00-10.9); Hemoglobin 11.1 GM/DL (14.0-18.0); Immature Granulocytes % 0.5 %; Immature Granulocytes Absolute 0.05 #; Lymphocytes % 9.5 % (21.2-54.2); Mean Corpuscular HGB Conc 30.8 GM/DL (32-36); Mean Corpuscular Volume 76.6 FL (87-102); Mean Platelet Volume 11.1 FL (9.6-12.0); Monocytes % 7.6 % (1.7-12.7); Neutrophils % 82.1 % (38.7-73.9); Red Cell Distribution Width 20.9 % (9.3-17.3)
[2020-06-25 04:06] LABS: Platelet Count 293 T/CUMM (130-400); White Blood Count 10.1 T/CUMM (4-12)
[2020-06-25 04:13] LABS: Albumin 2.4 G/DL (3.4-5.0); Bilirubin,Total 1.1 MG/DL (0.2-1.0); Calcium 8.9 MG/DL (8.5-10.1); Osmolality,Calculated 304.7 MOS/KG (273-304); Potassium 3.7 MMOL/L (3.5-5.1); Total Protein 7.4 G/DL (6.4-8.3)
[2020-06-25 04:13] LABS: Calcium 8.5 MG/DL (8.5-10.1); Osmolality,Calculated 309.4 MOS/KG (273-304); Potassium 3.9 MMOL/L (3.5-5.1)
[2020-06-25] MEDS: CLINDAMYCIN INJ 900 MG in PREMIX 1 EACH IV SCH ×3 (04:55→20:36)
[2020-06-25] MEDS: LEVOTHYROXINE 100 MCG TABLET PO SCH (05:46)
[2020-06-25] MEDS: ASPIRIN CHEW 81 MG TABLET PO SCH (08:50)
[2020-06-25] MEDS: CLOPIDOGREL 75 MG TABLET PO SCH (08:50)
[2020-06-25] MEDS: PANTOPRAZOLE 40 MG VIAL IV SCH (08:50)
[2020-06-25] MEDS: SODIUM CHLORIDE 0.45% 1,000 ML IV SCH ×2 (09:00→19:00)
[2020-06-25] MEDS ORDERED: POTASSIUM CHLORIDE 20 MEQ/15 ML UDCUP NG SCH (09:00)
[2020-06-25] MEDS: METOPROLOL TARTRATE 25 MG TABLET PO SCH ×2 (10:30→20:36)
[2020-06-25] MEDS ORDERED: LACTATED RINGERS 1,000 ML IV ONE (11:00)
[2020-06-25] MEDS: cefTRIAXone 1,000 MG in SYRINGE 1 EACH IV SCH (16:50)
[2020-06-25] MEDS: ATORVASTATIN 80 MG TABLET PO SCH (20:36)
[2020-06-25] MEDS: ENOXAPARIN 30 MG/0.3 ML SYRINGE SUBCUT SCH (20:36)
[2020-06-26] MEDS: INSULIN REGULAR 100 UNIT/ML SUBCUT SCH ×5 (00:44→23:46)
[2020-06-26 03:57] LABS: Allen Test Positive; Pt O2 Delivery Device Ventilator
[2020-06-26 03:58] LABS: ABG Base Excess 2.4 MMOL/L (-2.5-2.5); ABG HCO3 26.6 MMOL/L (20-26); ABG PCO2 36.7 MM HG (35-48); ABG PH 7.461 (7.35-7.45); ABG TCO2 23.7 MMOL/L (23-27)
[2020-06-26] MEDS: CLINDAMYCIN INJ 900 MG in PREMIX 1 EACH IV SCH ×3 (04:15→20:45)
[2020-06-26 05:01] LABS: Basophils % 0.2 % (0.0-0.8); Eosinophils # 0.2 10*3/uL (0.0-0.87); Eosinophils % 1.9 % (0.00-10.9); Hematocrit 33.6 VOL% (42.0-52.0); Hemoglobin 10.2 GM/DL (14.0-18.0); Immature Granulocytes % 0.6 %; Immature Granulocytes Absolute 0.07 #; Lymphocytes % 8.2 % (21.2-54.2); Mean Corpuscular HGB Conc 30.4 GM/DL (32-36); Mean Corpuscular Volume 76.2 FL (87-102); Mean Platelet Volume 10.6 FL (9.6-12.0); Monocytes % 9.4 % (1.7-12.7); Neutrophils % 79.7 % (38.7-73.9); Platelet Count 297 T/CUMM (130-400); Red Blood Count 4.41 MC/CUMM (3.8-5.5); White Blood Count 12.2 T/CUMM (4-12)
[2020-06-26] MEDS: SODIUM CHLORIDE 0.45% 1,000 ML IV SCH ×4 (05:35→22:13)
[2020-06-26 05:37] LABS: Albumin 2.3 G/DL (3.4-5.0); Bilirubin,Total 0.6 MG/DL (0.2-1.0); Calcium 8.5 MG/DL (8.5-10.1); Osmolality,Calculated 302.3 MOS/KG (273-304); Potassium 3.4 MMOL/L (3.5-5.1); Total Protein 7.3 G/DL (6.4-8.3)
[2020-06-26 05:38] LABS: Calcium 8.7 MG/DL (8.5-10.1); Potassium 3.5 MMOL/L (3.5-5.1)
[2020-06-26] MEDS: LEVOTHYROXINE 100 MCG TABLET PO SCH (06:02)
[2020-06-26] MEDS: METOPROLOL TARTRATE 25 MG TABLET PO SCH ×2 (08:58→21:09)
[2020-06-26] MEDS: PANTOPRAZOLE 40 MG VIAL IV SCH (08:58)
[2020-06-26] MEDS: ASPIRIN CHEW 81 MG TABLET PO SCH (08:58)
[2020-06-26] MEDS: CLOPIDOGREL 75 MG TABLET PO SCH (08:58)
[2020-06-26 16:40] LABS: ABG HCO3 26.3 MMOL/L (20-26); ABG Oxygen Saturation 99.9 % (95-100); ABG PCO2 34.5 MM HG (35-48); ABG PH 7.476 (7.35-7.45); ABG TCO2 23.3 MMOL/L (23-27)
[2020-06-26] MEDS: cefTRIAXone 1,000 MG in SYRINGE 1 EACH IV SCH (17:01)
[2020-06-26] MEDS: ATORVASTATIN 80 MG TABLET PO SCH (21:09)
[2020-06-26] MEDS: ENOXAPARIN 30 MG/0.3 ML SYRINGE SUBCUT SCH (21:10)
[2020-06-27] MEDS: SODIUM CHLORIDE 0.45% 1,000 ML IV SCH ×4 (01:07→18:07)
[2020-06-27 04:26] LABS: Calcium 8.1 MG/DL (8.5-10.1); Osmolality,Calculated 286.1 MOS/KG (273-304)
[2020-06-27] MEDS: CLINDAMYCIN INJ 900 MG in PREMIX 1 EACH IV SCH ×3 (04:34→20:57)
[2020-06-27 04:38] LABS: Basophils % 0.3 % (0.0-0.8); Eosinophils # 0.2 10*3/uL (0.0-0.87); Eosinophils % 2.1 % (0.00-10.9); Hematocrit 33.7 VOL% (42.0-52.0); Hemoglobin 9.6 GM/DL (14.0-18.0); Immature Granulocytes % 0.7 %; Immature Granulocytes Absolute 0.07 #; Lymphocytes % 10.7 % (21.2-54.2); Mean Corpuscular HGB Conc 28.5 GM/DL (32-36); Mean Platelet Volume 11.4 FL (9.6-12.0); Monocytes % 10.5 % (1.7-12.7); Neutrophils % 75.7 % (38.7-73.9); Platelet Count 231 T/CUMM (130-400); Red Blood Count 4.06 MC/CUMM (3.8-5.5); Red Cell Distribution Width 21.3 % (9.3-17.3); White Blood Count 9.5 T/CUMM (4-12)
[2020-06-27 04:53] LABS: Allen Test Positive; Pt O2 Delivery Device Ventilator
[2020-06-27 04:56] LABS: ABG HCO3 25.4 MMOL/L (20-26); ABG Oxygen Saturation 99.2 % (95-100); ABG PCO2 36.6 MM HG (35-48); ABG PH 7.441 (7.35-7.45); ABG TCO2 22.7 MMOL/L (23-27)
[2020-06-27] MEDS: INSULIN REGULAR 100 UNIT/ML SUBCUT SCH ×3 (06:21→18:07)
[2020-06-27] MEDS: LEVOTHYROXINE 100 MCG TABLET PO SCH (06:21)
[2020-06-27] MEDS: ASPIRIN CHEW 81 MG TABLET PO SCH (09:30)
[2020-06-27] MEDS: METOPROLOL TARTRATE 25 MG TABLET PO SCH ×2 (09:30→20:57)
[2020-06-27] MEDS: PANTOPRAZOLE 40 MG VIAL IV SCH (09:30)
[2020-06-27] MEDS: CLOPIDOGREL 75 MG TABLET PO SCH (09:30)
[2020-06-27 12:14] LABS: ABG Base Excess 1.1 MMOL/L (-2.5-2.5); ABG HCO3 25.4 MMOL/L (20-26); ABG Oxygen Saturation 99.7 % (95-100); ABG PCO2 33.6 MM HG (35-48); ABG TCO2 22.4 MMOL/L (23-27)
[2020-06-27] MEDS: cefTRIAXone 1,000 MG in SYRINGE 1 EACH IV SCH (16:48)
[2020-06-27] MEDS: ATORVASTATIN 80 MG TABLET PO SCH (20:57)
[2020-06-27] MEDS: ENOXAPARIN 30 MG/0.3 ML SYRINGE SUBCUT SCH (20:58)
[2020-06-28] MEDS: INSULIN REGULAR 100 UNIT/ML SUBCUT SCH ×4 (01:09→18:18)
[2020-06-28] MEDS: SODIUM CHLORIDE 0.45% 1,000 ML IV SCH ×4 (03:41→16:30)
[2020-06-28] MEDS: CLINDAMYCIN INJ 900 MG in PREMIX 1 EACH IV SCH ×3 (04:04→20:55)
[2020-06-28 04:26] LABS: Basophils % 0.3 % (0.0-0.8); Eosinophils # 0.3 10*3/uL (0.0-0.87); Eosinophils % 2.7 % (0.00-10.9); Hematocrit 32.5 VOL% (42.0-52.0); Hemoglobin 9.9 GM/DL (14.0-18.0); Immature Granulocytes % 0.7 %; Immature Granulocytes Absolute 0.07 #; Lymphocytes # 0.8 10*3/uL (1.4-4.0); Mean Corpuscular HGB Conc 30.5 GM/DL (32-36); Mean Corpuscular Volume 77.2 FL (87-102); Mean Platelet Volume 11.1 FL (9.6-12.0); Monocytes % 9.7 % (1.7-12.7); Neutrophils % 78.6 % (38.7-73.9); Platelet Count 249 T/CUMM (130-400); Red Blood Count 4.21 MC/CUMM (3.8-5.5); Red Cell Distribution Width 20.8 % (9.3-17.3)
[2020-06-28 04:48] LABS: Potassium 3.7 MMOL/L (3.5-5.1)
[2020-06-28 04:55] LABS: Allen Test Positive; Pt O2 Delivery Device Ventilator
[2020-06-28 04:56] LABS: ABG Base Excess -0.6 MMOL/L (-2.5-2.5); ABG HCO3 22.5 MMOL/L (20-26); ABG Oxygen Saturation 98.6 % (95-100); ABG PH 7.478 (7.35-7.45); ABG PO2 125.4 MM HG (80-95); ABG TCO2 23.4 MMOL/L (23-27)
[2020-06-28] MEDS: LEVOTHYROXINE 100 MCG TABLET PO SCH (07:17)
[2020-06-28] MEDS: PANTOPRAZOLE 40 MG VIAL IV SCH (09:31)
[2020-06-28] MEDS: CLOPIDOGREL 75 MG TABLET PO SCH (09:31)
[2020-06-28] MEDS: METOPROLOL TARTRATE 25 MG TABLET PO SCH ×2 (09:31→21:02)
[2020-06-28] MEDS: ASPIRIN CHEW 81 MG TABLET PO SCH (09:31)
[2020-06-28 11:15] LABS: ABG Base Excess 1.1 MMOL/L (-2.5-2.5); ABG HCO3 25.4 MMOL/L (20-26); ABG Oxygen Saturation 99.3 % (95-100); ABG PCO2 35.6 MM HG (35-48); ABG PH 7.452 (7.35-7.45); ABG TCO2 22.7 MMOL/L (23-27); Allen Test Positive; Pt O2 Delivery Device Ventilator
[2020-06-28] MEDS ORDERED: MIDAZOLAM 10 MG/2 ML VIAL ONE (13:06)
[2020-06-28] MEDS ORDERED: ETOMIDATE 20 MG/10 ML VIAL IV ONE ×2 (13:06→13:08)
[2020-06-28] MEDS ORDERED: MIDAZOLAM 2 MG/2 ML VIAL IV ONE (13:09)
[2020-06-28 13:53] LABS: ABG Base Excess -3.1 MMOL/L (-2.5-2.5); ABG HCO3 21.9 MMOL/L (20-26); ABG Oxygen Saturation 99.7 % (95-100); ABG PCO2 39.7 MM HG (35-48); ABG PH 7.355 (7.35-7.45); ABG TCO2 20.2 MMOL/L (23-27)
[2020-06-28] MEDS: ALBUTEROL/IPRATROPIUM 3 ML NEB RESP TX SCH ×3 (15:36→23:53)
[2020-06-28] MEDS: cefTRIAXone 1,000 MG in SYRINGE 1 EACH IV SCH (16:29)
[2020-06-28 17:49] LABS: ABG Base Excess -0.3 MMOL/L (-2.5-2.5); ABG HCO3 24.2 MMOL/L (20-26); ABG PH 7.444 (7.35-7.45); ABG TCO2 21.2 MMOL/L (23-27); Allen Test Positive; Pt O2 Delivery Device Ventilator
[2020-06-28] MEDS: ENOXAPARIN 30 MG/0.3 ML SYRINGE SUBCUT SCH (21:00)
[2020-06-28] MEDS: ATORVASTATIN 80 MG TABLET PO SCH (21:02)
[2020-06-29] MEDS: SODIUM CHLORIDE 0.45% 1,000 ML IV SCH (00:49)
[2020-06-29] MEDS: INSULIN REGULAR 100 UNIT/ML SUBCUT SCH ×4 (00:51→17:28)
[2020-06-29] MEDS: ALBUTEROL/IPRATROPIUM 3 ML NEB RESP TX SCH ×6 (03:05→23:53)
[2020-06-29] MEDS: CLINDAMYCIN INJ 900 MG in PREMIX 1 EACH IV SCH ×3 (04:02→21:50)
[2020-06-29 05:03] LABS: Basophils % 0.2 % (0.0-0.8); Eosinophils # 0.3 10*3/uL (0.0-0.87); Eosinophils % 2.8 % (0.00-10.9); Hematocrit 37.3 VOL% (42.0-52.0); Hemoglobin 10.6 GM/DL (14.0-18.0); Immature Granulocytes % 0.7 %; Immature Granulocytes Absolute 0.09 #; Lymphocytes # 0.9 10*3/uL (1.4-4.0); Lymphocytes % 7.1 % (21.2-54.2); Mean Corpuscular HGB Conc 28.4 GM/DL (32-36); Mean Corpuscular Volume 82.3 FL (87-102); Mean Platelet Volume 11.3 FL (9.6-12.0); Monocytes % 9.2 % (1.7-12.7); Platelet Count 279 T/CUMM (130-400); Red Blood Count 4.53 MC/CUMM (3.8-5.5); Red Cell Distribution Width 21.7 % (9.3-17.3); White Blood Count 12.4 T/CUMM (4-12)
[2020-06-29 05:13] LABS: Allen Test Positive; Pt O2 Delivery Device Ventilator
[2020-06-29 05:20] LABS: Osmolality,Calculated 275.5 MOS/KG (273-304); Potassium 4.1 MMOL/L (3.5-5.1)
[2020-06-29 05:21] LABS: ABG Base Excess -0.4 MMOL/L (-2.5-2.5); ABG HCO3 24.1 MMOL/L (20-26); ABG Oxygen Saturation 97.9 % (95-100); ABG PCO2 34.4 MM HG (35-48); ABG PH 7.441 (7.35-7.45); ABG PO2 97.1 MM HG (80-95); ABG TCO2 21.9 MMOL/L (23-27)
[2020-06-29] MEDS: LEVOTHYROXINE 100 MCG TABLET PO SCH (05:53)
[2020-06-29] MEDS: PANTOPRAZOLE 40 MG VIAL IV SCH (08:12)
[2020-06-29] MEDS: ASPIRIN CHEW 81 MG TABLET PO SCH (08:12)
[2020-06-29] MEDS: METOPROLOL TARTRATE 25 MG TABLET PO SCH ×2 (08:13→21:48)
[2020-06-29] MEDS: CLOPIDOGREL 75 MG TABLET PO SCH (08:13)
[2020-06-29 09:27] LABS: Troponin I 0.578 NG/ML (0.00-0.045)
[2020-06-29] MEDS: POTASSIUM PHOS/SOD PHOS POWDER 250 MG PACK PER TUBE SCH ×2 (13:28→21:45)
[2020-06-29] MEDS: cefTRIAXone 1,000 MG in SYRINGE 1 EACH IV SCH (15:19)
[2020-06-29] MEDS: ENOXAPARIN 30 MG/0.3 ML SYRINGE SUBCUT SCH (21:48)
[2020-06-29] MEDS: ATORVASTATIN 80 MG TABLET PO SCH (21:48)
[2020-06-30] MEDS: INSULIN REGULAR 100 UNIT/ML SUBCUT SCH ×5 (00:31→23:33)
[2020-06-30 03:55] LABS: ABG Base Excess -3.1 MMOL/L (-2.5-2.5); ABG HCO3 19.3 MMOL/L (20-26); ABG PCO2 28.1 MM HG (35-48); ABG PH 7.454 (7.35-7.45); ABG PO2 147.7 MM HG (80-95); ABG TCO2 20.1 MMOL/L (23-27)
[2020-06-30] MEDS: ALBUTEROL/IPRATROPIUM 3 ML NEB RESP TX SCH ×6 (04:12→23:35)
[2020-06-30] MEDS: CLINDAMYCIN INJ 900 MG in PREMIX 1 EACH IV SCH (04:53)
[2020-06-30 05:56] LABS: Basophils # 0.1 10*3/uL (0.0-0.2); Basophils % 0.3 % (0.0-0.8); Eosinophils # 0.1 10*3/uL (0.0-0.87); Eosinophils % 0.6 % (0.00-10.9); Hematocrit 30.7 VOL% (42.0-52.0); Hemoglobin 9.7 GM/DL (14.0-18.0); Immature Granulocytes % 1.2 %; Immature Granulocytes Absolute 0.28 #; Lymphocytes # 1.7 10*3/uL (1.4-4.0); Lymphocytes % 7.2 % (21.2-54.2); Mean Corpuscular HGB Conc 31.6 GM/DL (32-36); Mean Corpuscular Volume 75.1 FL (87-102); Mean Platelet Volume 11.2 FL (9.6-12.0); Monocytes % 7.8 % (1.7-12.7); Neutrophils % 82.9 % (38.7-73.9); Platelet Count 254 T/CUMM (130-400); Red Blood Count 4.09 MC/CUMM (3.8-5.5); Red Cell Distribution Width 21.4 % (9.3-17.3); White Blood Count 22.8 T/CUMM (4-12)
[2020-06-30 06:13] LABS: Calcium 8.1 MG/DL (8.5-10.1); Osmolality,Calculated 279.4 MOS/KG (273-304)
[2020-06-30] MEDS: LEVOTHYROXINE 100 MCG TABLET PO SCH (06:27)
[2020-06-30 06:38] LABS: Band Neutrophils 1 % (0-10); Hypochromasia 1+; Lymphocytes 7 % (20-55); Microcytosis 1+; Ovalocytes Slight; Platelet Estimate Adequate; Segmented Neutrophils 88 % (50-85); Total Cells Counted 100
[2020-06-30] MEDS: ASPIRIN CHEW 81 MG TABLET PO SCH (08:46)
[2020-06-30] MEDS: METOPROLOL TARTRATE 25 MG TABLET PO SCH ×2 (08:46→20:54)
[2020-06-30] MEDS: CLOPIDOGREL 75 MG TABLET PO SCH (08:46)
[2020-06-30] MEDS: POTASSIUM PHOS/SOD PHOS POWDER 250 MG PACK PER TUBE SCH ×2 (08:47→21:09)
[2020-06-30] MEDS: PANTOPRAZOLE 40 MG VIAL IV SCH (08:47)
[2020-06-30] MEDS ORDERED: LEVOFLOXACIN INJ 750 MG in PREMIX 1 EACH IV SCH (10:00)
[2020-06-30] MEDS: PIPERACILLIN/TAZOBACTAM 3,375 MG in SODIUM CHLORIDE 0.9% 100 ML IV SCH ×2 (10:23→18:23)
[2020-06-30] MEDS: ENOXAPARIN 80 MG/0.8 ML SYRINGE SUBCUT SCH (17:00)
[2020-06-30] MEDS: ATORVASTATIN 80 MG TABLET PO SCH (20:54)
[2020-07-01] MEDS: PIPERACILLIN/TAZOBACTAM 3,375 MG in SODIUM CHLORIDE 0.9% 100 ML IV SCH ×2 (02:24→09:06)
[2020-07-01 02:43] LABS: ABG Base Excess -1.9 MMOL/L (-2.5-2.5); ABG HCO3 21.9 MMOL/L (20-26); ABG Oxygen Saturation 98.8 % (95-100); ABG PH 7.439 (7.35-7.45); ABG TCO2 22.9 MMOL/L (23-27)
[2020-07-01] MEDS: ALBUTEROL/IPRATROPIUM 3 ML NEB RESP TX SCH ×6 (04:10→23:30)
[2020-07-01 05:20] LABS: Basophils % 0.2 % (0.0-0.8); Eosinophils # 0.2 10*3/uL (0.0-0.87); Hematocrit 27.1 VOL% (42.0-52.0); Hemoglobin 8.5 GM/DL (14.0-18.0); Immature Granulocytes % 0.8 %; Immature Granulocytes Absolute 0.15 #; Lymphocytes # 0.8 10*3/uL (1.4-4.0); Lymphocytes % 4.1 % (21.2-54.2); Mean Corpuscular HGB Conc 31.4 GM/DL (32-36); Mean Corpuscular Volume 76.3 FL (87-102); Mean Platelet Volume 12.4 FL (9.6-12.0); Monocytes % 7.2 % (1.7-12.7); Neutrophils % 86.7 % (38.7-73.9); Platelet Count 210 T/CUMM (130-400); Red Blood Count 3.55 MC/CUMM (3.8-5.5); Red Cell Distribution Width 21.2 % (9.3-17.3); White Blood Count 18.7 T/CUMM (4-12)
[2020-07-01 06:00] LABS: Calcium 7.9 MG/DL (8.5-10.1); Osmolality,Calculated 278.7 MOS/KG (273-304); Potassium 5.5 MMOL/L (3.5-5.1)
[2020-07-01 06:02] LABS: Band Neutrophils 2 % (0-10); Hypochromasia 1+; Lymphocytes 5 % (20-55); Microcytosis 1+; Platelet Estimate Normal; Segmented Neutrophils 86 % (50-85); Total Cells Counted 100
[2020-07-01] MEDS: INSULIN REGULAR 100 UNIT/ML SUBCUT SCH ×3 (06:08→17:51)
[2020-07-01] MEDS: LEVOTHYROXINE 100 MCG TABLET PO SCH (06:20)
[2020-07-01] MEDS ORDERED: DEXTROSE 5% NACL 0.45% 1,000 ML IV SCH (07:30)
[2020-07-01] MEDS: ASPIRIN CHEW 81 MG TABLET PO SCH (09:05)
[2020-07-01] MEDS: POTASSIUM PHOS/SOD PHOS POWDER 250 MG PACK PER TUBE SCH ×2 (09:05→21:33)
[2020-07-01] MEDS: METOPROLOL TARTRATE 25 MG TABLET PO SCH ×2 (09:05→21:33)
[2020-07-01] MEDS: PANTOPRAZOLE 40 MG VIAL IV SCH (09:06)
[2020-07-01] MEDS: CLOPIDOGREL 75 MG TABLET PO SCH (09:06)
[2020-07-01] MEDS: DEXTROSE 5% NACL 0.9% 1,000 ML IV SCH ×2 (09:43→21:33)
[2020-07-01] MEDS: POLYETHYLENE GLYCOL POWDER 17 GM PACK PO PRN (11:49)
[2020-07-01] MEDS: ENOXAPARIN 80 MG/0.8 ML SYRINGE SUBCUT SCH (15:40)
[2020-07-01] MEDS: ATORVASTATIN 80 MG TABLET PO SCH (21:33)
[2020-07-02] MEDS: INSULIN REGULAR 100 UNIT/ML SUBCUT SCH ×4 (00:08→17:50)
[2020-07-02] MEDS: ALBUTEROL/IPRATROPIUM 3 ML NEB RESP TX SCH ×6 (02:55→23:32)
[2020-07-02 04:33] LABS: ABG Base Excess -3.5 MMOL/L (-2.5-2.5); ABG HCO3 21.1 MMOL/L (20-26); ABG Oxygen Saturation 98.9 % (95-100); ABG PCO2 36.2 MM HG (35-48); ABG PH 7.384 (7.35-7.45); ABG TCO2 22.2 MMOL/L (23-27); Allen Test Positive; Pt O2 Delivery Device Ventilator
[2020-07-02 04:47] LABS: Basophils % 0.2 % (0.0-0.8); Eosinophils # 0.3 10*3/uL (0.0-0.87); Eosinophils % 1.9 % (0.00-10.9); Hematocrit 26.9 VOL% (42.0-52.0); Hemoglobin 8.4 GM/DL (14.0-18.0); Immature Granulocytes % 0.8 %; Lymphocytes # 0.7 10*3/uL (1.4-4.0); Lymphocytes % 5.4 % (21.2-54.2); Mean Corpuscular HGB Conc 31.2 GM/DL (32-36); Mean Corpuscular Volume 75.6 FL (87-102); Mean Platelet Volume 11.8 FL (9.6-12.0); Monocytes % 8.1 % (1.7-12.7); Neutrophils % 83.6 % (38.7-73.9); Platelet Count 214 T/CUMM (130-400); Red Blood Count 3.56 MC/CUMM (3.8-5.5); Red Cell Distribution Width 21.2 % (9.3-17.3)
[2020-07-02 05:04] LABS: Calcium 7.6 MG/DL (8.5-10.1); Osmolality,Calculated 287.2 MOS/KG (273-304); Potassium 5.6 MMOL/L (3.5-5.1)
[2020-07-02] MEDS: LEVOTHYROXINE 100 MCG TABLET PO SCH (06:13)
[2020-07-02] MEDS: DEXTROSE 5% NACL 0.9% 1,000 ML IV SCH ×2 (08:05→17:34)
[2020-07-02] MEDS: CLOPIDOGREL 75 MG TABLET PO SCH (09:07)
[2020-07-02] MEDS: ASPIRIN CHEW 81 MG TABLET PO SCH (09:07)
[2020-07-02] MEDS: PANTOPRAZOLE 40 MG VIAL IV SCH (09:07)
[2020-07-02] MEDS: METOPROLOL TARTRATE 25 MG TABLET PO SCH ×2 (09:07→20:30)
[2020-07-02 09:37] LABS: Albumin 1.8 G/DL (3.4-5.0); Bilirubin,Indirect 0.2 MG/DL (0.0-1.0); Bilirubin,Total 1.2 MG/DL (0.2-1.0); Total Protein 6.8 G/DL (6.4-8.3)
[2020-07-02] MEDS: POLYETHYLENE GLYCOL POWDER 17 GM PACK PO PRN (11:14)
[2020-07-02] MEDS: ENOXAPARIN 80 MG/0.8 ML SYRINGE SUBCUT SCH (15:41)
[2020-07-02] MEDS: ATORVASTATIN 80 MG TABLET PO SCH (20:30)
[2020-07-03] MEDS: INSULIN REGULAR 100 UNIT/ML SUBCUT SCH ×5 (00:51→23:36)
[2020-07-03] MEDS: ALBUTEROL/IPRATROPIUM 3 ML NEB RESP TX SCH ×6 (03:01→23:45)
[2020-07-03 03:44] LABS: Basophils % 0.3 % (0.0-0.8); Eosinophils # 0.3 10*3/uL (0.0-0.87); Eosinophils % 2.7 % (0.00-10.9); Hematocrit 26.6 VOL% (42.0-52.0); Hemoglobin 8.1 GM/DL (14.0-18.0); Immature Granulocytes % 0.7 %; Immature Granulocytes Absolute 0.08 #; Lymphocytes # 0.5 10*3/uL (1.4-4.0); Lymphocytes % 4.9 % (21.2-54.2); Mean Corpuscular HGB Conc 30.5 GM/DL (32-36); Mean Corpuscular Volume 77.3 FL (87-102); Mean Platelet Volume 11.4 FL (9.6-12.0); Monocytes % 9.4 % (1.7-12.7); Platelet Count 295 T/CUMM (130-400); Red Blood Count 3.44 MC/CUMM (3.8-5.5); Red Cell Distribution Width 21.9 % (9.3-17.3); White Blood Count 10.8 T/CUMM (4-12)
[2020-07-03 04:08] LABS: Calcium 7.7 MG/DL (8.5-10.1); Potassium 4.9 MMOL/L (3.5-5.1)
[2020-07-03 04:10] LABS: Band Neutrophils 5 % (0-10); Eosinophils 4 % (0-10); Hypochromasia 2+; Lymphocytes 1 % (20-55); Microcytosis 1+; Segmented Neutrophils 85 % (50-85); Total Cells Counted 100
[2020-07-03 04:11] LABS: Ovalocytes Few
[2020-07-03 04:12] LABS: Platelet Estimate Normal
[2020-07-03 04:19] LABS: ABG Base Excess -4.9 MMOL/L (-2.5-2.5); ABG HCO3 20.2 MMOL/L (20-26); ABG Oxygen Saturation 98.3 % (95-100); ABG PH 7.354 (7.35-7.45); ABG TCO2 21.3 MMOL/L (23-27); Allen Test Positive; Pt O2 Delivery Device Ventilator
[2020-07-03] MEDS: DEXTROSE 5% NACL 0.9% 1,000 ML IV SCH ×2 (04:41→16:15)
[2020-07-03] MEDS: LEVOTHYROXINE 100 MCG TABLET PO SCH (06:19)
[2020-07-03] MEDS: METOPROLOL TARTRATE 25 MG TABLET PO SCH ×2 (08:58→21:09)
[2020-07-03] MEDS: PANTOPRAZOLE 40 MG VIAL IV SCH (08:58)
[2020-07-03] MEDS: ASPIRIN CHEW 81 MG TABLET PO SCH (08:58)
[2020-07-03] MEDS: LEVOFLOXACIN INJ 750 MG in PREMIX 1 EACH IV SCH (08:58)
[2020-07-03] MEDS: ENOXAPARIN 80 MG/0.8 ML SYRINGE SUBCUT SCH (16:57)
[2020-07-03] MEDS ORDERED: HYDROmorphone 2 MG/1 ML VIAL IV ONE (18:18)
[2020-07-03] MEDS ORDERED: METOPROLOL TARTRATE 5 MG/5 ML VIAL IV PRN (18:19)
[2020-07-04] MEDS: DEXTROSE 5% NACL 0.9% 1,000 ML IV SCH ×3 (02:16→22:42)
[2020-07-04 02:49] LABS: ABG Base Excess -6.9 MMOL/L (-2.5-2.5); ABG HCO3 18.8 MMOL/L (20-26); ABG Oxygen Saturation 98.3 % (95-100); ABG PCO2 48.2 MM HG (35-48); ABG PH 7.237 (7.35-7.45); ABG TCO2 19.2 MMOL/L (23-27); Allen Test Positive; Pt O2 Delivery Device Ventilator
[2020-07-04] MEDS: fentaNYL INJ 1,250 MCG in SODIUM CHLORIDE 0.9% 225 ML IV PRN ×2 (03:16→17:38)
[2020-07-04] MEDS: ALBUTEROL/IPRATROPIUM 3 ML NEB RESP TX SCH ×6 (03:57→23:38)
[2020-07-04 04:38] LABS: Basophils # 0.1 10*3/uL (0.0-0.2); Basophils % 0.4 % (0.0-0.8); Eosinophils # 0.3 10*3/uL (0.0-0.87); Eosinophils % 2.3 % (0.00-10.9); Hematocrit 30.2 VOL% (42.0-52.0); Hemoglobin 8.8 GM/DL (14.0-18.0); Immature Granulocytes % 0.8 %; Lymphocytes # 0.6 10*3/uL (1.4-4.0); Lymphocytes % 4.2 % (21.2-54.2); Mean Corpuscular HGB Conc 29.1 GM/DL (32-36); Mean Corpuscular Volume 79.7 FL (87-102); Monocytes % 8.5 % (1.7-12.7); Neutrophils % 83.8 % (38.7-73.9); Platelet Count 333 T/CUMM (130-400); Red Blood Count 3.79 MC/CUMM (3.8-5.5); Red Cell Distribution Width 21.9 % (9.3-17.3); White Blood Count 13.1 T/CUMM (4-12)
[2020-07-04 04:55] LABS: Osmolality,Calculated 293.8 MOS/KG (273-304); Potassium 4.9 MMOL/L (3.5-5.1)
[2020-07-04 05:17] LABS: Eosinophils 1 % (0-10); Lymphocytes 1 % (20-55); Platelet Estimate Adequate; Segmented Neutrophils 89 % (50-85); Total Cells Counted 100
[2020-07-04 05:18] LABS: Hypochromasia 1+; Microcytosis 1+; Ovalocytes Slight
[2020-07-04] MEDS: INSULIN REGULAR 100 UNIT/ML SUBCUT SCH ×4 (05:34→23:44)
[2020-07-04] MEDS: LEVOTHYROXINE 100 MCG TABLET PO SCH (06:06)
[2020-07-04] MEDS: PANTOPRAZOLE 40 MG VIAL IV SCH (08:20)
[2020-07-04] MEDS: ASPIRIN CHEW 81 MG TABLET PO SCH (08:20)
[2020-07-04] MEDS: METOPROLOL TARTRATE 25 MG TABLET PO SCH ×2 (08:20→22:09)
[2020-07-04 08:53] LABS: Allen Test Positive; Pt O2 Delivery Device Ventilator
[2020-07-04 08:54] LABS: ABG Base Excess -8.5 MMOL/L (-2.5-2.5); ABG HCO3 17.5 MMOL/L (20-26); ABG PCO2 56.1 MM HG (35-48); ABG TCO2 19.3 MMOL/L (23-27)
[2020-07-04 08:59] LABS: ABG PH 7.167 (7.35-7.45)
[2020-07-04] MEDS: FUROSEMIDE 40 MG/4 ML VIAL IV SCH ×2 (12:32→15:25)
[2020-07-04] MEDS: ENOXAPARIN 80 MG/0.8 ML SYRINGE SUBCUT SCH (15:25)
[2020-07-04 20:50] VITALS: BP 139/71
[2020-07-05 04:04] LABS: Basophils % 0.4 % (0.0-0.8); Eosinophils # 0.3 10*3/uL (0.0-0.87); Eosinophils % 2.6 % (0.00-10.9); Hematocrit 26.4 VOL% (42.0-52.0); Hemoglobin 7.9 GM/DL (14.0-18.0); Immature Granulocytes % 0.5 %; Immature Granulocytes Absolute 0.05 #; Lymphocytes # 0.6 10*3/uL (1.4-4.0); Lymphocytes % 5.8 % (21.2-54.2); Mean Corpuscular HGB Conc 29.9 GM/DL (32-36); Mean Corpuscular Volume 78.1 FL (87-102); Mean Platelet Volume 10.9 FL (9.6-12.0); Monocytes % 8.9 % (1.7-12.7); Neutrophils % 81.8 % (38.7-73.9); Platelet Count 273 T/CUMM (130-400); Red Blood Count 3.38 MC/CUMM (3.8-5.5); Red Cell Distribution Width 21.7 % (9.3-17.3); White Blood Count 10.1 T/CUMM (4-12)
[2020-07-05 04:07] LABS: ABG Base Excess -7.5 MMOL/L (-2.5-2.5); ABG HCO3 19.2 MMOL/L (20-26); ABG Oxygen Saturation 99.3 % (95-100); ABG PCO2 43.9 MM HG (35-48); ABG PH 7.259 (7.35-7.45); ABG PO2 357.2 MM HG (80-95); ABG TCO2 20.6 MMOL/L (23-27)
[2020-07-05 04:27] LABS: Albumin 1.5 G/DL (3.4-5.0); Bilirubin,Total 0.9 MG/DL (0.2-1.0); Osmolality,Calculated 302.3 MOS/KG (273-304); Potassium 4.4 MMOL/L (3.5-5.1); Total Protein 5.9 G/DL (6.4-8.3)
[2020-07-05] MEDS: ALBUTEROL/IPRATROPIUM 3 ML NEB RESP TX SCH ×2 (04:44→07:20)
[2020-07-05] MEDS: INSULIN REGULAR 100 UNIT/ML SUBCUT SCH (05:50)
[2020-07-05] MEDS: LEVOTHYROXINE 100 MCG TABLET PO SCH (06:07)
[2020-07-05] MEDS: ASPIRIN CHEW 81 MG TABLET PO SCH (08:30)
[2020-07-05] MEDS: LEVOFLOXACIN INJ 750 MG in PREMIX 1 EACH IV SCH (08:30)
[2020-07-05] MEDS: METOPROLOL TARTRATE 25 MG TABLET PO SCH (08:30)
[2020-07-05] MEDS: PANTOPRAZOLE 40 MG VIAL IV SCH (08:31)
[2020-07-05] MEDS: DEXTROSE 5% NACL 0.9% 1,000 ML IV SCH (08:32)
[2020-07-05] MEDS: fentaNYL INJ 1,250 MCG in SODIUM CHLORIDE 0.9% 225 ML IV PRN (09:58)
[2020-07-05] MEDS: FUROSEMIDE 40 MG/4 ML VIAL IV SCH (10:00)
[2020-07-05] MEDS ORDERED: SODIUM BICARBONATE 50 MEQ/50 ML SYRINGE IV ONE ×2 (10:21→10:44)
[2020-07-05] MEDS ORDERED: EPINEPHrine 1 MG/10 ML SYRINGE ONE ×2 (10:21→10:44)
[2020-07-05] MEDS ORDERED: DOPamine 800 MG/250 ML PREMIX IV ONE (10:44)
[2020-07-05] MEDS ORDERED: DOPamine 800 MG/250 ML PREMIX IV PRN (11:07)
== END 2020-07-05 11:19 | disposition expired | DRG 689 ==
LOC: EDUNIT# → EDBD → N.ED 10:28 → N.EDINP 13:08 → SUATTDRO 13:08 → N.EDINP 14:28 → N.5E 14:38 → N.ICU 06-24 10:00
PROVIDERS: ADMIT Internal Medicine; ATTEND Internal Medicine